=== PATIENT | female | born 1945 | race Caucasian/White ===

== ENCOUNTER 2016-08-08 13:27 | Emergency (ER) | payer BC ==
[~2016-08-08] VITALS: Ht 162.6 cm; Wt 78.7 kg
[~2016-08-08 13:27] MED LIST: ALBUAER2 INH; CHOL1000 PO; ESTA1TAB PO; LEVO100T PO; MULT-240 PO; PRLSR20 PO; SIMV20TA2 PO
[2016-08-08 13:29] VITALS: TEMP 36.3; Ht 162.6 cm; Wt 78.7 kg
[2016-08-08 13:35] VITALS: O2SAT 100
[2016-08-08] MEDS ORDERED: ALBUT/IPRATROP 3MG/0.5MG NEB 3 ML VIAL INH STA (13:36)
[2016-08-08] MEDS ORDERED: ALBUT/IPRATROP 3MG/0.5MG NEB 3 ML VIAL ONE (13:38)
--- NOTE | 2016-08-08 13:44 | EMERGENCY ROOM VISIT NOTE ---
History Report prepared by Nelia: Xiomara Robles First contact with patient: 13:38 Chief Complaint: SHORTNESS OF BREATH Stated Complaint: ASTHMA Nursing Triage Summary: History of asthma. Has inhaler and nebulizer but nebulizer was broken in customs. Traveled from [place] in March. Pt also states she has alkot fo phlegm. Has a dry cough. History of Present Illness The patient is a 71 year old female who presents to the Emergency Room with complaints of persistent shortness of breath that started last night. She has a history of asthma and reports her current symptoms feel like her usual asthma exacerbation. She states the last time she was on steroids for her asthma was about 6 or 7 years ago. She has an inhaler and nebulizer but reports her nebulizer was broken in customs, when she came to the [place] from [place] in March 2016. She also complains of a dry cough. Source of History: patient Onset: last night Position: chest Timing: other (persistent) Modifying Factors (Relieving): other (inhaler) Associated Symptoms: + cough Review of Systems See HPI for pertinent positives & negatives. A total of 10 systems reviewed and were otherwise negative. Past Medical & Surgical Medical Problems: (1) Asthma Social History Smoking Status: Never Smoker Alcohol Use: none Drug Use: none Marital Status: Housing Status: lives with family Occupation Status: retired Current/Historical Medications Scheduled Cholecalciferol (Vitamin D3), 1 TAB PO QAM Estazolam (Prosom), 2 MG PO HS Fluticasone Prop/Salmeterol (Advair Diskus 100/50 60 Dose), 1 PUFFS INH BID Levothyroxine Sodium (Synthroid), 100 MCG PO QAM Multiple Vitamins W/ Minerals (Womens One Daily), 1 TAB PO QAM Omeprazole (Prilosec), 20 MG PO QAM Prednisone (Prednisone Tab), 0 PO DAILY Simvastatin (Zocor), 20 MG PO HS Scheduled PRN Albuterol (Ventolin), 2 PUFFS INH QID PRN for Wheezing Allergies Coded Allergies: Oxycodone (Unverified Allergy, Mild, NAUSEA/VOMITING, 11/18/15) Latex1 -Allergic Contact Dermititis (Verified Allergy, Unknown, RASH/ BLISTERS, 11/18/15) Sulfa Antibiotics (Verified Allergy, Unknown, RASH? UNKNOWN - LONG TIME AGO, 11/18/15) Uncoded Allergies: SULFA (Allergy, Unknown, 09/20/02) Physical Exam Vital Signs Date Time Temp Pulse Resp B/P Pulse Ox O2 Delivery O2 Flow Rate FiO2 08/08/16 14:54 84 20 146/64 100 08/08/16 14:09 88 16 96 Room Air 08/08/16 13:51 91 08/08/16 13:41 100 Room Air 08/08/16 13:35 100 Room Air 08/08/16 13:35 100 Room Air 08/08/16 13:29 36.3 103 22 184/103 98 Room Air Physical Exam GENERAL: Patient is a healthy-appearing well-nourished HEAD: Normocephalic atraumatic EYES: Ocular movements intact pupils equal and react to light OROPHARYNX mucous membranes are moist no exudates present no erythema or edema present NECK: Supple no nuchal rigidity CHEST: Good equal expansion LUNGS: Slight wheezes present in the lung bases. CARDIAC: Normal S1 and S2 ABDOMEN: Soft nontender no guarding BACK: No CVA tenderness EXTREMITIES: No pain upon palpation normal muscle strength in all groups no clubbing cyanosis or edema NEURO: Patient is following commands is answering questions appropriately. Alert and oriented x3 Cranial Nerves 2-12 grossly intact Medical Decision & Procedures ER Provider Diagnostic Interpretation: This X-Ray was reviewed and interpreted by myself and the radiologist. SINGLE VIEW CHEST IMPRESSION: 1. Cardiomegaly. 2. There is diffuse interstitial thickening. This could resent reactive airway disease or possibly a component of mild congestive failure. Clinical correlation will be required. 3. No lobar consolidation or pleural effusion is identified Electronically signed by: Andrew Puga M.D. 08/08/2016 2:25 PM Medications Administered Medications (Trade) Dose Ordered Sig/Jamari Route Start Time Stop Time Status Last Admin Dose Admin Albuterol/ Ipratropium (Duoneb) 3 ml NOW STAT INH 08/08/16 13:36 08/08/16 13:38 DC 08/08/16 13:40 3 ML Albuterol/ Ipratropium (Duoneb) 12 ml ONE ONCE INH 08/08/16 13:45 08/08/16 13:46 DC 08/08/16 14:09 12 ML Prednisone (PredniSONE TAB) 60 mg NOW STAT PO 08/08/16 13:43 08/08/16 13:44 DC 08/08/16 14:03 60 MG Albuterol (Ventolin Hfa Inhaler) 2 puffs NOW ONCE INH 08/08/16 14:45 08/08/16 14:46 DC 08/08/16 14:52 2 PUFFS ED Course 1340: Past medical records reviewed. The patient was evaluated in room C10. A complete history and physical examination was performed. 1336: DuoNeb 3 ml INH. 1343: Prednisone 60 mg PO. 1345: DuoNeb 12 ml INH. 1425: I reevaluated the patient. She is feeling better. I discussed her results and discharge instructions and she verbalized complete understanding and agreement. 1445: Albuterol 2 puffs INH. Medical Decision Prior records/ancillary studies reviewed. Triage Nursing notes reviewed. The patient's history was concerning for respiratory difficulties. Differential diagnosis: Etiologies such as infections, reactive airway disease, pneumonia, pneumothorax , COPD, CHF, cardiac ischemia, pulmonary embolism, musculoskeletal, gastrointestinal, as well as others were entertained. This is a 71-year-old female who presents emergency department complaining of asthma exacerbation. I recommended that the patient receive blood work as well as an IV line however the patient is adamantly refusing this. She was given prednisone in the emergency department and an hour-long breathing treatment. Repeat examination revealed improvement patient's symptoms. The patient is requesting to be discharged home and asking for her inhalers to be refilled. I believe this is reasonable and I will also place patient on a prednisone taper. The patient also refused flu swab in the emergency department. Patient was in agreement with the treatment plan. Impression Primary Impression: Asthma attack Scribe Attestation The scribe's documentation has been prepared under my direction and personally reviewed by me in its entirety. I confirm that the note above accurately reflects all work, treatment, procedures, and medical decision making performed by me. Departure Information Dispostion Home / Self-Care Prescriptions Fluticasone Prop/Salmeterol (Advair Diskus 100/50 60 Dose) 1 Ea Aerp 1 PUFFS INH BID for 30 Days, #1 INHALER 3 Refills Prov: Kal Carreno MD 08/08/16 Prednisone (Prednisone Tab) 20 Mg Tab 0 PO DAILY, #7 TAB 2 TABS DAILY FOR 2 DAYS, THEN 1 TAB DAILY FOR 2 DAYS, THEN 1/2 TAB DAILY FOR 2 DAYS. Prov: Kal Carreno MD 08/08/16 Referrals Heavenly Wright DO (PCP) Patient Instructions A Signature Page, Asthma - [facility], My [facility] Additional Instructions Use albuterol inhaler twice every 6 hours You have been examined and treated today on an emergency basis only. This is not a substitute for, or an effort to provide, complete comprehensive medical care. It is impossible to recognize and treat all injuries or illnesses in a single emergency department visit. It is therefore important that you follow up closely with Dr Wright. Call as soon as possible for an appointment. Thank you for your time and consideration. I look forward to speaking with you again soon. Please don't hesitate to call us if you have any questions.
[2016-08-08] MEDS ORDERED: ALBUT/IPRATROP 3MG/0.5MG NEB 3 ML VIAL INH ONE (13:45)
[2016-08-08 14:09] VITALS: PULSE 88; O2SAT 96
--- NOTE | 2016-08-08 14:26 | DIAGNOSTIC IMAGING REPORT ---
SINGLE VIEW CHEST CLINICAL HISTORY: Asthma attack. FINDINGS: An AP, portable, upright chest radiograph is compared to study dated 09/14/2007. The examination is degraded by portable technique and patient rotation. The heart is enlarged. There is diffuse interstitial thickening. No airspace consolidation or pleural effusion is identified. No pneumothorax is seen. The skeletal structures are osteopenic. The bony thorax is grossly intact. Surgical clips are noted in the right axilla. IMPRESSION: 1. Cardiomegaly. 2. There is diffuse interstitial thickening. This could resent reactive airway disease or possibly a component of mild congestive failure. Clinical correlation will be required. 3. No lobar consolidation or pleural effusion is identified Electronically signed by: Andrew Puga M.D. 08/08/2016 2:25 PM
[2016-08-08] MEDS ORDERED: PRED20TA2 PO (14:35)
[2016-08-08] MEDS ORDERED: ADVIN10/60 INH (14:35)
[2016-08-08] MEDS ORDERED: ALBUTEROL HFA 8 GM INHALER INH ONE (14:45)
[2016-08-08 14:54] VITALS: BP 146/64; PULSE 84; O2SAT 100
== END 2016-08-08 15:10 | disposition home or self-care (01) ==
LOC: C.EDB 13:28 → C.EDC 15:10
DX: J45.901 Unspecified asthma with (acute) exacerbation (principal); Z88.5 Allergy status to narcotic agent; Z91.040 Latex allergy status; Z88.2 Allergy status to sulfonamides; I51.7 Cardiomegaly

== ENCOUNTER 2016-08-12 16:21 | Emergency (ER) | payer BC ==
[~2016-08-12] VITALS: Ht 165.1 cm; Wt 78.5 kg
[~2016-08-12 16:21] MED LIST changes: +ADVIN10/60 INH; +PRED20TA2 PO
[2016-08-12 16:28] VITALS: TEMP 36.7; Ht 165.1 cm; Wt 78.5 kg
[2016-08-12] MEDS ORDERED: ALBUT/IPRATROP 3MG/0.5MG NEB 3 ML VIAL INH STA ×2 (16:44→17:44)
--- NOTE | 2016-08-12 17:33 | DIAGNOSTIC IMAGING REPORT ---
CHEST 2 VIEWS ROUTINE CLINICAL HISTORY: There is a breath, cough. COMPARISON STUDY: 08/08/2016 FINDINGS: The heart is mildly enlarged. There is no focal pulmonary consolidation. There is resolving interstitial edema. There are no pleural effusions. Surgical clips project over the right axillary region and both breasts.[ IMPRESSION: Resolving bilateral interstitial opacities. No evidence of lobar consolidation. Electronically signed by: Kris Davis M.D. 08/12/2016 5:31 PM Dictated Date/Time: 08/12/2016 5:30 PM
[2016-08-12] MEDS ORDERED: ACETAMINOPHEN 500 MG TAB PO STA (17:45)
[2016-08-12 18:12] VITALS: BP 138/78; PULSE 79; O2SAT 96
--- NOTE | 2016-08-12 18:34 | EMERGENCY ROOM VISIT NOTE ---
History First contact with patient: 16:32 Chief Complaint: RESPIRATORY PROBLEMS Stated Complaint: ASTHMA Nursing Triage Summary: Pt presents with c/o asthma attack. Pt states seen here two days ago and sx are worse. Pt asking for a neb in triage. History of Present Illness The patient is a 71 year old female who presents to the Emergency Room with complaints of chest tightness and shortness of breath due to an asthma attack. The patient was seen here several days ago for the same symptoms. She states she was given a nebulized treatment while in the emergency room and it made her feel much better. The patient states that she felt better for approximately 1 day and then her symptoms started progressing again. The patient is using her discus inhaler as well as her Ventolin inhaler. She is taking her prednisone as prescribed. The patient states that her family physician, Dr. Williamson called her and referred her to a independent freight agent in [place] in 20 days. The patient states that she does not drive and really only once a nebulizer for at home. The patient states that she had a nebulizer in the past but he was broken when she was traveling and had to put it in her suitcase. She states that this was several years ago and has not needed a nebulizer till just recently. The patient denies any other symptoms of head congestion, ear pain, sore throat, fever or chest pain. Review of Systems 10 system review was performed and was negative unless stated otherwise history of present illness. Past Medical/Surgical History Medical Problems: (1) Asthma Social History Smoking Status: Never Smoker Alcohol Use: none Drug Use: none Marital Status: Housing Status: lives with family Occupation Status: retired Current/Historical Medications Scheduled Cholecalciferol (Vitamin D3), 1 TAB PO QAM Estazolam (Prosom), 2 MG PO HS Fluticasone Prop/Salmeterol (Advair Diskus 100/50 60 Dose), 1 PUFFS INH BID Levothyroxine Sodium (Synthroid), 100 MCG PO QAM Multiple Vitamins W/ Minerals (Womens One Daily), 1 TAB PO QAM Omeprazole (Prilosec), 20 MG PO QAM Prednisone (Prednisone Tab), 0 PO DAILY Simvastatin (Zocor), 20 MG PO HS Scheduled PRN Albuterol (Ventolin), 2 PUFFS INH QID PRN for Wheezing Allergies Coded Allergies: Oxycodone (Unverified Allergy, Mild, NAUSEA/VOMITING, 08/12/16) Latex1 -Allergic Contact Dermititis (Verified Allergy, Unknown, RASH/ BLISTERS, 08/12/16) Sulfa Antibiotics (Verified Allergy, Unknown, RASH? UNKNOWN - LONG TIME AGO, 08/12/16) Uncoded Allergies: SULFA (Allergy, Unknown, 09/20/02) Physical Exam Vital Signs Date Time Temp Pulse Resp B/P Pulse Ox O2 Delivery O2 Flow Rate FiO2 08/12/16 18:12 79 18 138/78 96 Room Air 08/12/16 16:28 36.7 108 22 158/84 96 Room Air Physical Exam PHYSICAL EXAM: Vital Signs were reviewed: Temperature 36.7, blood pressure 158/ 84, pulse 108, respiratory rate 22 Reviewed Nurse's notes and agree. Oxygen saturation is 96 % on room air which is normal . GENERAL: 71-year-old white female appears in no acute distress. MENTAL STATUS: Alert, oriented, coherent. EARS: Canals clear. TMs good light reflex, no erythema or fluid level noted. NOSE: Nasal mucosa without erythema or engorgement. PHARYNX: No erythema, no edema noted. No exudate noted. Uvula is absent. Airway is adequate. NECK: Supple, non-tender. No lymphadenopathy noted. LUNGS: Clear to auscultation with expiratory wheezing noted bilaterally.. CARDIAC: Regular rate and rhythm without murmur. SKIN: No rashes noted. Medical Decision & Procedures ER Provider Diagnostic Interpretation: CHEST 2 VIEWS ROUTINE CLINICAL HISTORY: There is a breath, cough. COMPARISON STUDY: 08/08/2016 FINDINGS: The heart is mildly enlarged. There is no focal pulmonary consolidation. There is resolving interstitial edema. There are no pleural effusions. Surgical clips project over the right axillary region and both breasts.[ IMPRESSION: Resolving bilateral interstitial opacities. No evidence of lobar consolidation. Electronically signed by: Kris Davis M.D. 08/12/2016 5:31 PM Medications Administered Medications (Trade) Dose Ordered Sig/Jamari Route Start Time Stop Time Status Last Admin Dose Admin Albuterol/ Ipratropium (Duoneb) 3 ml NOW STAT INH 08/12/16 16:44 08/12/16 16:46 DC 08/12/16 16:56 3 ML Albuterol/ Ipratropium (Duoneb) 3 ml NOW STAT INH 08/12/16 17:44 08/12/16 17:46 DC 08/12/16 18:10 3 ML Acetaminophen (Tylenol Tab) 1,000 mg NOW STAT PO 08/12/16 17:45 08/12/16 17:46 DC 08/12/16 18:10 1,000 MG ED Course The patient was evaluated. The patient's EMR was reviewed. Patient had a portable chest x-ray which was of poor quality at her last ER visit. I discussed with the patient about obtaining a 2 view chest which she is non- portable she was in agreement. I also recommended that we get laboratory testing on her but she refuses cut she did not want any needles. She states she had labs drawn at her doctor's office 1 week prior to her being in the emergency room a few days ago and they were all normal. The patient just Requesting that she gets a nebulized treatment. The patient was given a DuoNeb x2. A chest x-ray was ordered and interpreted by the radiologist as above without any acute findings. I informed the patient of the x-ray findings. The patient states that she was feeling better. I also spoke with the case sealer to see if we could get her an appointment with Dr. Williamson tomorrow that she could break the patient for a home nebulizer and medications. The case sealer was able to get the patient an appointment tomorrow at 1:[address] Williamson. The patient was informed and happy with treatment plan. The patient was discharged home in stable condition. Medical Decision Differential diagnosis include influenza, pneumonia, asthma exacerbation, anxiety attack Due to the patient's history of asthma and recent ER visit for asthma exacerbation this was my main concern and likely diagnosis Impression Primary Impression: Asthma exacerbation Departure Information Dispostion Home / Self-Care Condition GOOD Referrals Heavenly WrightDO (PCP) Forms HOME CARE DOCUMENTATION FORM, IMPORTANT VISIT INFORMATION, WORK / SCHOOL INSTRUCTIONS Patient Instructions A Signature Page, Asthma, [facility] [place] Additional Instructions Continue all current medications as prescribed. Keep scheduled appointment with Dr. Williamson tomorrow for further management of your asthma.
== END 2016-08-12 18:40 | disposition home or self-care (01) ==
LOC: C.EDB 16:22
DX: J45.901 Unspecified asthma with (acute) exacerbation (principal); Z79.899 Other long term (current) drug therapy; Z88.2 Allergy status to sulfonamides; Z88.8 Allergy status to other drugs, medicaments and biological substances; Z91.040 Latex allergy status

== ENCOUNTER → 2017-07-27 | Outpatient (CLI) | payer BC ==
[~2017-07-27] MED LIST changes: +GADAVIST IV PRN; -PRED20TA2 PO
--- NOTE | 2017-07-27 15:41 | DIAGNOSTIC IMAGING REPORT ---
RIGHT WRIST MRI CLINICAL HISTORY: R WRIST PAIN TECHNIQUE: Multiplanar multisequence MRI of the right wrist was performed both before and after the intravenous ministration of contrast. COMPARISON STUDY: None. FINDINGS: No fractures identified within the wrist. Partial tear of the extensor carpi ulnaris tendon. Severe osteoarthritis at the first carpometacarpal joint with large marginal osteophytes, full-thickness cartilage loss, [id number] articulation, subchondral edema, subchondral cystic change. There is also 6 mm of radial subluxation of the first metacarpal in relation to the trapezium bone. This is also likely due to the long-standing degenerative change. This accounts for the patient's palpable abnormality. Small wrist effusion. Multiple tears at the TFCC including the ulnar attachments of the triangular fibrocartilage, meniscus homologue, and the ulnar collateral ligament. Scattered areas of cystic change within the carpal bones is likely due to the degenerative change. There is a partial tear of the scapholunate ligament. However, the interval is intact. There is moderate cartilage space narrowing at the radiocarpal joint as well as fluid and cartilage thinning at the STT joint. This is also consistent with areas of degenerative change. There is a 1.8 x 1.0 cm well-circumscribed oval-shaped fat-containing lesion along the volar aspect of the wrist. This is deep to the median nerve and results in volar displacement of the median nerve. IMPRESSION: 1. Severe osteoarthritis at the first carpometacarpal joint as described above which accounts for the patient's palpable abnormality. This includes 6 mm of radial subluxation of the first metacarpal in relation to the trapezium bone. 2. Multiple tears of the TFCC as described above as well as a partial tear of the adjacent extensor carpi ulnaris. 3. Partial scapholunate ligament tear. 4. Small joint effusion. 5. A 1.8 x 1.0 cm lipoma along the volar aspect of the wrist. This is deep to the median nerve and results in volar displacement of the median nerve. Electronically signed by: Pedro Pandey M.D. 07/27/2017 3:39 PM Dictated Date/Time: 07/27/2017 3:25 PM
== END | disposition home or self-care (01) ==
LOC: C.MRIBC 13:40
PROVIDERS: ATTEND Orthopaedic Surgery
DX: M25.531 Pain in right wrist (principal); M18.0 Bilateral primary osteoarthritis of first carpometacarpal joints; R22.31 Localized swelling, mass and lump, right upper limb

== ENCOUNTER 2023-08-03 13:05 | Inpatient (IN) ==
[2023-08-03] MEDS ORDERED: ALBUT/IPRATROP 3MG/0.5MG NEB 3 ML VIAL NEB STA ×2 (13:32→16:44)
[2023-08-03] MEDS ORDERED: SODIUM CHLORIDE 0.9% 500 ML IV ONE (13:32)
--- NOTE | 2023-08-03 13:32 | ED Triage Note ---
Date of Service August 03, 2023 Provider in Triage Author: Indu Gamboa History of Present Illness This patient was briefly evaluated while in triage. An abbreviated physical exam was performed. This patient is a 78-year-old Female who presents to the ED for evaluation of illness. She has had runny nose, nasal congestion, and cough for the past 5 days. No fevers. Has been having a lot of SOB. History of lung cancer surgery about 3 years ago so she is worried. Has not been able to sleep because of the symptoms. Home COVID test was negative. Physical Exam GENERAL: Non-toxic and in no acute distress. HEENT: Pupils equal. No obvious scleral icterus. HEART: Regular rate and rhythm. LUNGS: Clear to auscultation with wheezes throughout. No obvious rales or rhonchi. Mild accessory muscle use without retractions. ABDOMEN: Soft, non-tender to palpation. NEURO: Alert and oriented. No obvious neurological deficits on quick neuro exam. MUSCULOSKELETAL: No calf tenderness, swelling, or erythema. Initial orders for labs and / or imaging were placed and patient was placed in the waiting area until a bed is available. Please see further documentation for the full ED course. MDM / Impression Impression Impression: SOB (shortness of breath), Influenza A, Pneumonia, Leukocytosis, Hyponatremia Impression: Pneumonia Qualifiers: Pneumonia type: due to unspecified organism Laterality: right Lung location: unspecified part of lung Qualified Code(s): J18.9 - Pneumonia, unspecified organism Leukocytosis Qualifiers: Leukocytosis type: unspecified Qualified Code(s): D72.829 - Elevated white blood cell count, unspecified
[2023-08-03 14:38] LABS: Basophils # (auto) 0.04 K/uL (0.00-0.20); Basophils % (auto) 0.2 %; Eosinophils # (auto) 0.03 K/uL (0.00-0.50); Eosinophils % (auto) 0.2 %; Hematocrit (blood only) 41.5 % (37.0-47.0); Hemoglobin 14.1 g/dl (12.0-16.0); Immature Granulocytes # (auto) 0.16 K/uL (0.01-0.20); Immature Granulocytes % (auto) 0.9 %; Lymphocytes # (auto) 1.88 K/uL (1.20-3.40); Lymphocytes % (auto) 10.3 %; Mean Corpuscular Volume 94.1 fL (80.0-100.0); Mean Platelet Volume 10.5 fL (9.4-12.4); Monocytes # (auto) 0.91 K/uL (0.11-0.59); Neutrophils # (auto) 15.24 K/uL (1.40-6.50); Neutrophils % (auto) 83.4 %; Platelet Count 118 K/uL (130-400); RDW Coefficient of Variation 12.3 % (11.5-14.5); RDW Standard Deviation 42.7 fL (36.4-46.3); Red Blood Count 4.41 M/uL (4.20-5.40); White Blood Count 18.26 K/ul (4.8-10.8)
[2023-08-03 14:50] LABS: Albumin Globulin Ratio 1.2 (0.9-2); BUN Creatinine Ratio 15.2 (10-20); Bilirubin,Total 0.9 mg/dl (0.2-1.0); Creatinine Clr Calc Pharmacy 78.5 ml/min; Est GFR (African American) 99.5 ml/min; Est GFR (Non-African American) 85.8 ml/min; Globulin 3.3 gm/dl (2.5-4.0); Potassium 3.7 mmol/L (3.5-5.1); Total Protein 7.3 gm/dl (6.0-8.3)
[2023-08-03 14:55] LABS: Troponin I High Sensitivity 14.3 pg/ml (0-14)
[2023-08-03 15:02] LABS: Partial Thromboplastin Ratio 1.2; Partial Thromboplastin Time 33 Seconds (21-31); Prothrombin Time 11.4 Seconds (9.0-12.0)
--- NOTE | 2023-08-03 15:22 | Electrocardiogram Report ---
Test Reason : Blood Pressure : / mmHG Vent. Rate : 086 BPM Atrial Rate : 086 BPM P-R Int : 148 ms QRS Dur : 086 ms QT Int : 374 ms P-R-T Axes : 040 005 040 degrees QTc Int : 447 ms Normal sinus rhythm Normal ECG When compared with ECG of 22-MAY-2022 18:14, No significant change was found Confirmed by Dg Velazco ([id number]) on 08/03/2023 3:22:15 PM Referred By: Confirmed By:Diomedes Velazco
[2023-08-03] MEDS ORDERED: OPTIRAY 320 125ml IV ONE (15:27)
[2023-08-03 15:35] LABS: Adenovirus PCR Not Detected (NotDetected); Bordetella parapertussis PCR Not Detected (NotDetected); Bordetella pertussis PCR Not Detected (NotDetected); Chlamydia pneumoniae PCR Not Detected (NotDetected); Coronavirus 229E PCR Not Detected (NotDetected); Coronavirus CoV-2 (COVID19)PCR Not Detected (NotDetected); Coronavirus HKU1 PCR Not Detected (NotDetected); Coronavirus NL63 PCR Not Detected (NotDetected); Coronavirus OC43PCR Not Detected (NotDetected); Human Metapneumovirus PCR Not Detected (NotDetected); Influenza B PCR Not Detected (NotDetected); Mycoplasma pneumoniae PCR Not Detected (NotDetected); Parainfluenza Virus 1 PCR Not Detected (NotDetected); Parainfluenza Virus 2 PCR Not Detected (NotDetected); Parainfluenza Virus 3 PCR Not Detected (NotDetected); Parainfluenza Virus 4 PCR Not Detected (NotDetected); Respiratory Syncytial VirusPCR Not Detected (NotDetected); Rhinovirus/Enterovirus PCR Not Detected (NotDetected)
[2023-08-03 15:57] LABS: Influenza A (H3) PCR DETECTED (NotDetected)
--- NOTE | 2023-08-03 16:13 | CT Scan Report ---
CT ANGIOGRAPHY OF THE CHEST, PULMONARY EMBOLUS PROTOCOL CLINICAL HISTORY: Shortness of breath. COMPARISON STUDY: Chest CT May 22, 2022. TECHNIQUE: Following IV administration of 117 mL of Optiray, helical axial images of the chest were o btained utilizing the pulmonary embolus protocol. Maximal intensity projections and sagittal and cor onal reformats were viewed on an independent 3D workstation. IV contrast was administered without co mplication. Automated exposure control was utilized for the study. A dose lowering technique was ut ilized adhering to the principles of ALARA. CT DOSE: 845.32 mGy.cm FINDINGS: There are postoperative findings consistent with right lower lobectomy. No enlarged axilla ry, mediastinal or hilar lymph nodes are present. There are no pulmonary emboli. Mild cardiomegaly is noted. There is no pericardial effusion. A trace right pleural effusion is present. There is no pneu mothorax. Extensive airspace opacity within the posterior segment of the right upper lobe and the rig ht middle lobe is present. There is no cavitation. Lungs are suboptimally assessed due to respiratory motion. No central obstructing mass is present. There is hepatic steatosis. Gallbladder is surgicall y absent. IMPRESSION: 1. No pulmonary emboli identified. 2. Extensive airspace opacity within the right upper and right middle lobes status post right lower l obectomy. The findings favor pneumonia or aspiration pneumonitis. A follow-up chest CT in 2 months to ensure resolution is recommended. 3. Cardiomegaly. 4. Hepatic steatosis. ACT 112: Negative or not required by law. Electronically signed by: Martin Miller M.D. 08/03/2023 4:12 PM
[2023-08-03] MEDS ORDERED: CEFEPIME 2,000 MG/20 ML VIAL IV STA (16:36)
[2023-08-03] MEDS ORDERED: SODIUM CHLORIDE 0.9% 1,000 ML IV ONE (16:36)
--- NOTE | 2023-08-03 16:49 | Emergency Department Note ---
Impression & Plan SOB (shortness of breath), Influenza A, Pneumonia, Leukocytosis, Hyponatremia ED Provider Note NAME: MARCUS MARS AGE: 78 SEX: F : 1945 ARRIVES VIA: Walk-In INFORMANT: [Patient] ED PROVIDER(S): [Andrew Mackenzie MD] CHIEF COMPLAINT: Illness HISTORY OF PRESENT ILLNESS: The patient is a 78-year-old female who has been sick for 5 days. She had a cough, congestion, no appetite and fatigue. She states that her recently had influenza. The patient has a history of lung cancer with resection on the right lung. She denies nausea or vomiting. She does admit to some shortness of breath although, she states her breathing is not too bad. She has a nebulizer at home which she has been using. Because of how she was feeling, the patient presents for evaluation. PMHx/PSHx/Social Hx: See Below PHYSICAL EXAM: GENERAL: Patient is in no acute distress. HEENT: No acute trauma, normocephalic atraumatic, mucous membranes moist, no nasal congestion. NECK: No stridor, no adenopathy, no meningismus, trachea is midline. LUNGS: Wheezing bilaterally with some bilateral crackers, the crackles are much worse on the right. HEART: Without murmurs gallops or rubs, regular rate and rhythm. ABDOMEN: Soft, nontender, no peritonitis. EXTREMITIES: No cyanosis, full range of motion of all the joints without pain or difficulty. NEUROLOGIC: Oriented x 3, no acute motor or sensory deficits, no focal weakness. SKIN: No jaundice, no diaphoresis. DIFFERENTIAL DIAGNOSIS: Pneumonia or bronchitis, viral illness, anemia, electrolyte imbalance, PE, bacteremia or sepsis, among others. EMERGENCY DEPARTMENT PROCEDURES: MEDICAL DECISION MAKING: There is a moderate leukocytosis at 18,000, this would be consistent with infection. There is a normal hemoglobin. Platelet count is somewhat low at 118. No concerning coagulopathy. Sodium is slightly low at 132, not in need of emergent correction. There was no renal failure. Lactic acid level was not elevated making severe sepsis less likely. No concerning liver enzyme elevation. Procalcitonin level was elevated consistent with bacterial infection. ECG showed a sinus rhythm, no obvious ischemia. Cardiac enzyme testing x 1 was slightly elevated. This troponin elevation could be secondary to cardiac injury or potentially just mismatch from her dyspnea. Respiratory bio fire was positive for influenza A. Chest CT does not show PE, a right-sided pneumonia was seen. On exam, the patient did have crackles along the right lung more so than the left. There was wheezing present. Patient received IV saline, 1 L. She received IV cefepime as antibiotic coverage. She was given a DuoNeb. The patient has influenza A and pneumonia. She has ongoing chronic lung disease. She presents with some dyspnea and flulike symptoms. Given her history, given her age, I do think hospitalization would be warranted. I spoke with the patient, I discussed the patient's findings with case management, the on-call hospitalist was consulted. Prior/Outside records/notes reviewed: GI note from 11/03/2022 discussing her chronic diarrhea and the plan moving forward. ECG per my interpretation: Indication was shortness of breath. The ECG shows a normal sinus rhythm with a rate of 86. There is no ST elevation, no PVCs. The QTc is 447. Continuous Cardiac Monitoring per my interpretation: An order was placed for continuous cardiac monitoring. The monitor shows a rate of 95 with normal sinus rhythm. Imaging/x-ray results per my interpretation: Chronic Medical/Social conditions affecting care: Chronic lung disease. Advanced age. Care/Management discussed with: Case management, the on-call hospitalist. Level of care consideration(s): After review of the information above and other included data: --I believe the patient requires escalation of care to admission DISPOSITION: Admission Past Med/Surg History Medical History Chest pain thought to be GI related per pt, reason egd but also referred to dr. ibanez (new pt appt 04/23 per pt) Fear of needles Osteoarthritis Bloating Intermittent diarrhea Diverticular disease GERD (gastroesophageal reflux disease) Hypothyroidism History of lung cancer dx 2019; sx White coat syndrome without diagnosis of hypertension Prolonged QT interval has not been to a [employer] network engineer but reports Dr. Jimenez referred her to Dr. Ibanez given current symptoms, appt is 04/23. prolonged QT interval is not a new finding per pt History of cystitis Asthma uses PRN inh 1xwk on avg Surgical History History of hemorrhoidectomy History of x 2 History of tonsillectomy History of right shoulder replacement History of bilateral knee replacement History of esophagogastroduodenoscopy (EGD) History of colonoscopy S/P lobectomy of lung RLL History of surgery on wrist History of oophorectomy History of hysterectomy History of cholecystectomy History of uvulectomy per pt, uvulectomy was a medical mistake during tonsillectomy as a teen Family History Other No family history of adverse response to anesthesia Social History Smoking Status: Never smoker Second Hand Exposure: No; Do You Dip or Chew Tobacco: No; Hx Alcohol Use: No Hx Substance Use: No Preferred Language: Martiniquais Communication Ability: Effective Rn Bone Marrow Transplant Required: No Beliefs That Will Affect Care: None Current Living Situation: Spouse Feels Safe at Home: Yes Assistive Devices: Glasses Allergies Allergies Allergy/AdvReac Type Severity Reaction Status Date / Time gabapentin Allergy Severe TROUBLE Verified 08/03/23 17:04 BREATHING, FACE SWELLED, VOMITING latex Allergy Severe Difficulty Verified 08/03/23 17:03 Breathing oxycodone [From Percocet] Allergy Intermediate Hives Verified 08/03/23 17:03 Sulfa (Sulfonamide Allergy Intermediate Rash Verified 08/03/23 17:03 Antibiotics) Quinolones AdvReac Severe Tachycardia Verified 08/03/23 17:03 hydrocodone [From Vicodin] AdvReac Intermediate nausea/vomi Verified 08/03/23 17:03 ting chocolate Allergy Intermediate Rash Uncoded 08/03/23 17:03 Home Meds Home Medications Medication Instructions Recorded Confirmed albuterol sulfate 2.5 mg/3 mL 2.5 mg inhalation Q4 PRN Wheezing 05/29/19 08/03/23 (0.083 %) solution for nebulization albuterol sulfate 90 mcg/actuation 2 puff inhalation QID PRN Wheezing 05/29/19 08/03/23 aerosol inhaler (ProAir HFA) cholecalciferol (vitamin D3) 125 5,000 unit PO QDL 05/29/19 08/03/23 mcg (5,000 unit) tablet (Vitamin D3) estazolam 2 mg tablet 2 mg PO HS 05/29/19 08/03/23 levothyroxine 88 mcg tablet 88 mcg PO QAM 05/29/19 08/03/23 omeprazole 20 mg capsule,delayed 20 mg PO QAM 05/29/19 08/03/23 release Results & Data (ED) Vital Signs Vital Signs - 24 hr 08/03/23 13:28 08/03/23 16:54 08/03/23 18:12 Temperature 36.3 C L Temperature Source Temporal Artery Scan Pulse Rate 95 H Pulse Rate [Right Finger] 88 80 Pulse Rhythm [Right Finger] Regular Respiratory Rate 22 21 22 Respiratory Effort / Characteristics Non-Labored Spontaneous Respiratory Depth Normal Normal Blood Pressure 115/67 Blood Pressure [Right Arm] 136/100 107/69 Blood Pressure Mean 83 Blood Pressure Mean [Right Arm] 112 81 Pulse Oximetry 93 90 94 Oxygen Delivery Method Room Air Room Air Sepsis Recent Fever Within 48 Hours No Sepsis New/Unexplained Change in Mental Status N/A Sepsis Action Taken by Nursing No Action Required Home Medications Current Medication List: was personally reviewed by me Laboratory Data Attestation: I reviewed the patient's lab results. 08/03/23 14:10 08/03/23 14:10 Lab Results 08/03/23 08/03/23 Range/Units 14:10 17:50 WBC 18.26 H (4.8-10.8) K/ul RBC 4.41 (4.20-5.40) M/uL Hgb 14.1 (12.0-16.0) g/dl Hct 41.5 (37.0-47.0) % MCV 94.1 (80.0-100.0) fL MCH 32.0 (25.0-34.0) pg MCHC 34.0 (32.0-36.0) g/dL RDW Std Deviation 42.7 (36.4-46.3) fL RDW Coeff of Paul 12.3 (11.5-14.5) % Plt Count 118 L (130-400) K/uL MPV 10.5 (9.4-12.4) fL Immature Gran % (Auto) 0.9 % Neut % (Auto) 83.4 % Lymph % (Auto) 10.3 % Weakley % (Auto) 5.0 % Eos % (Auto) 0.2 % Baso % (Auto) 0.2 % Neut # (Auto) 15.24 H (1.40-6.50) K/uL Lymph # (Auto) 1.88 (1.20-3.40) K/uL Weakley # (Auto) 0.91 H (0.11-0.59) K/uL Eos # (Auto) 0.03 (0.00-0.50) K/uL Baso # (Auto) 0.04 (0.00-0.20) K/uL Immature Gran # (Auto) 0.16 (0.01-0.20) K/uL PT 11.4 (9.0-12.0) Seconds INR 1.0 (0.9-1.1) APTT 33 H (21-31) Seconds PTT Ratio 1.2 Sodium 132 L (136-145) mmol/L Potassium 3.7 (3.5-5.1) mmol/L Chloride 98 (98-107) mmol/L Carbon Dioxide 27 (21-32) mmol/L Anion Gap 7 (3-11) BUN 10 (6-23) mg/dl Creatinine 0.66 (0.6-1.2) mg/dl Est Cr Clr Drug Dosing 78.5 ml/min Est GFR ( Amer) 99.5 ml/min Est GFR (Non-Af Amer) 85.8 ml/min BUN/Creatinine Ratio 15.2 (10-20) Glucose 114 H (70-99(Fasting)) mg/dl Lactate 1.0 (0.4-2.0) mmol/L Calcium 9.0 (8.6-10.3) mg/dl Total Bilirubin 0.9 (0.2-1.0) mg/dl AST 31 (13-39) U/L ALT 27 (7-52) U/L Alkaline Phosphatase 71 (34-104) U/L Troponin I High Sens 14.3 H (0-14) pg/ml Total Protein 7.3 (6.0-8.3) gm/dl Albumin 4.0 (3.4-5.0) gm/dl Globulin 3.3 (2.5-4.0) gm/dl Albumin/Globulin Ratio 1.2 (0.9-2) Adenovirus (PCR) Not Detected (NotDetected) B. pertussis DNA (PCR) Not Detected (NotDetected) B.parapertussis DNA PCR Not Detected (NotDetected) C. pneumoniae DNA (PCR) Not Detected (NotDetected) Coronavirus OC43 (PCR) Not Detected (NotDetected) Coronavirus HKU1 (PCR) Not Detected (NotDetected) Coronavirus 229E (PCR) Not Detected (NotDetected) SARS-CoV-2 (PCR) Not Detected (NotDetected) Coronavirus NL63 (PCR) Not Detected (NotDetected) Human Metapneumovir PCR Not Detected (NotDetected) Influenza A (H3) PCR DETECTED A* (NotDetected) Influenza Type B (PCR) Not Detected (NotDetected) M. pneumoniae (PCR) Not Detected (NotDetected) Parainfluenza 1 (PCR) Not Detected (NotDetected) Parainfluenza 2 (PCR) Not Detected (NotDetected) Parainfluenza 3 (PCR) Not Detected (NotDetected) Parainfluenza 4 (PCR) Not Detected (NotDetected) RSV (PCR) Not Detected (NotDetected) Entero/Rhino (PCR) Not Detected (NotDetected) Administered Medications Discontinued Medications Albuterol (Albut/Ipratrop 3mg/0.5mg Neb 3 Ml Vial) 3 ml NEB NOW STA; Protocol Stop: 08/03/23 13:33 Last Admin: 08/03/23 16:58 Dose: Not Given Documented By: ASW Albuterol (Albut/Ipratrop 3mg/0.5mg Neb 3 Ml Vial) 3 ml NEB NOW STA; Protocol Stop: 08/03/23 16:45 Last Admin: 08/03/23 17:02 Dose: 3 ml Documented By: ASW Sodium Chloride (Nss) 500 mls @ 999 mls/hr IV .Q31M ONE Stop: 08/03/23 14:02 Last Admin: 08/03/23 16:57 Dose: Not Given Documented By: ASW Sodium Chloride (Nss) 1,000 mls @ 999 mls/hr IV .Q1H1M ONE Stop: 08/03/23 17:36 Last Admin: 08/03/23 17:03 Dose: 999 mls/hr Documented By: ASW Cefepime HCl (Maxipime) 2,000 mg in 20 mls @ 5 mls/min IV NOW STA; Protocol Stop: 08/03/23 16:39 Last Admin: 08/03/23 18:10 Dose: 5 mls/min Documented By: PHYLLIS Ioversol (Optiray 320 125ml) 117 ml IV ONCE ONE Stop: 08/03/23 15:28 Last Admin: 08/03/23 15:27 Dose: 117 ml Documented By: STEFFANIE Imaging Data Radiologist's Impression: Chest CTA 08/03/23 13:32 CT ANGIOGRAPHY OF THE CHEST, PULMONARY EMBOLUS PROTOCOL CLINICAL HISTORY: Shortness of breath. COMPARISON STUDY: Chest CT May 22, 2022. TECHNIQUE: Following IV administration of 117 mL of Optiray, helical axial images of the chest were obtained utilizing the pulmonary embolus protocol. Maximal intensity projections and sagittal and coronal reformats were viewed on an independent 3D workstation. IV contrast was administered without complication. Automated exposure control was utilized for the study. A dose lowering technique was utilized adhering to the principles of ALARA. CT DOSE: 845.32 mGy.cm FINDINGS: There are postoperative findings consistent with right lower lobectomy. No enlarged axillary, mediastinal or hilar lymph nodes are present. There are no pulmonary emboli. Mild cardiomegaly is noted. There is no pericardial effusion. A trace right pleural effusion is present. There is no pneumothorax. Extensive airspace opacity within the posterior segment of the right upper lobe and the right middle lobe is present. There is no cavitation. Lungs are suboptimally assessed due to respiratory motion. No central obstructing mass is present. There is hepatic steatosis. Gallbladder is surgically absent. IMPRESSION: 1. No pulmonary emboli identified. 2. Extensive airspace opacity within the right upper and right middle lobes status post right lower lobectomy. The findings favor pneumonia or aspiration pneumonitis. A follow-up chest CT in 2 months to ensure resolution is recommended. 3. Cardiomegaly. 4. Hepatic steatosis. ACT 112: Negative or not required by law. Electronically signed by: Martin Miller M.D. 08/03/2023 4:12 PM Discharge Plan Visit Data Chief Complaint: Illness Stated Complaint: COUGHING, ILLNESS ED Provider: Andrew Mackenzie Discharge Problem: SOB (shortness of breath), Influenza A, Pneumonia, Leukocytosis, Hyponatremia Patient Disposition: Admitted As Inpatient Condition: Fair Forms Stand Alone Forms: [facility] Prescriptions Prescriptions: No Action albuterol sulfate 2.5 mg /3 mL (0.083 %) solution for nebulization 2.5 mg inhalation Q4 PRN (Reason: Wheezing) albuterol sulfate [ProAir HFA] 90 mcg/actuation HFA aerosol inhaler 2 puff inhalation QID PRN (Reason: Wheezing) estazolam 2 mg tablet 2 mg PO HS levothyroxine 88 mcg Tablet 88 mcg PO QAM omeprazole 20 mg capsule,delayed release(DR/EC) 20 mg PO QAM cholecalciferol (vitamin D3) [Vitamin D3] 5,000 unit Tablet 5,000 unit PO QDL Referrals Referrals: Heavenly Wright DO [Primary Care Provider] - Discharge Problem: Pneumonia Qualifiers: Pneumonia type: due to unspecified organism Laterality: right Lung location: u nspecified part of lung Qualified Code(s): J18.9 - Pneumonia, unspecified organism Leukocytosis Qualifiers: Leukocytosis type: unspecified Qualified Code(s): D72.829 - Elevated white blood cell count, unspecified
--- NOTE | 2023-08-03 17:35 | History & Physical Report ---
Date of Service August 03, 2023 Assessment & Plan (1) Influenza A: (2) Pneumonia: (3) Asthma exacerbation: Plan: Patient is 78-year-old female with PMH asthma, lung cancer s/p right lower lobectomy, HLD, hypothyroidism, anxiety, ADD, GERD, Raynaud's presented to ER with complaint of cough, SOB, wheezing x 5 days In ER patient afebrile, 93% on room air, other vital stable. WBC: 18 with left shift, lactate WNL, Pro-Alban: 57, + influenza A CTA chest: No pulmonary emboli identified. Extensive airspace opacity within the right upper and right middle lobes status post right lower lobectomy. The findings favor pneumonia or aspiration pneumonitis. A follow-up chest CT in 2 months to ensure resolution is recommended. Cardiomegaly. Blood cultures pending In ER given 1500 mL NSS, albuterol neb, cefepime Isolation precautions Will hold on Tamiflu given 5 days from symptom onset Cefepime, doxycycline Solu-Medrol 40 mg every 8 hours Supplemental oxygen as needed Incentive spirometry DuoNebs Mucinex, Tessalon Perles CBC, BMP in a.m. (4) Elevated troponin: Plan: Initial troponin 14.3 with repeat normalizing at 9.9 EKG sinus rhythm with no acute ST changes noted Likely demand from underlying pneumonia EKG in a.m. (5) Hyponatremia: Plan: Na: 132 Repeat BMP in a.m. (6) History of lung cancer: Plan: S/P right lower lobectomy (7) GERD (gastroesophageal reflux disease): Plan: Continue PPI (8) Hypothyroidism: Plan: Continue levothyroxine DVT Prophylaxis Lovenox SQ DNR/DNI as per discussion with pt Follows with Dr Wright for routine care Pt was seen and care coordinated with Dr Rahman. See addendum History of Present Illness Chief Complaint: Cough Primary Care Provider: Heavenly Wright, Patient is 78-year-old female with PMH asthma, lung cancer s/p right lower lobectomy, HLD, hypothyroidism, anxiety, ADD, GERD, Raynaud's presented to ER with complaint of cough x 5 days. History obtained from patient, patient's son and outpatient chart. States last week had influenza. Patient states 5 days ago started with LOGAN, malaise, myalgias, congestion, sore throat, nonproductive cough. has had chills. Has not been taking temperature at home. Patient states symptoms have continued and cough has worsened. Patient states coughing almost to the point of vomiting. States feels like needs to cough phlegm out however is unable to expel. Also reports chest tightness and wheezing the last several days. She has tried OTC Tylenol, Motrin, Delsym without much relief. Patient has been using albuterol nebulizer couple times a day. States the past 2 days has had 3-4 episodes of loose stool daily. has not had any diarrhea today. Decreased appetite and oral intake past few days. Denies diaphoresis, N/V, dizziness, syncope, vision changes, neck pain, palpitations, hemoptysis, choking, ear discharge, abdominal pain, paresthesias, extremity weakness, extremity edema, rashes, urinary symptoms. Allergies Allergy/AdvReac Type Severity Reaction Status Date / Time gabapentin Allergy Severe TROUBLE Verified 08/03/23 17:04 BREATHING, FACE SWELLED, VOMITING latex Allergy Severe Difficulty Verified 08/03/23 17:03 Breathing chocolate Allergy Intermediate Rash Verified 08/03/23 19:09 oxycodone [From Percocet] Allergy Intermediate Hives Verified 08/03/23 17:03 Sulfa (Sulfonamide Allergy Intermediate Rash Verified 08/03/23 17:03 Antibiotics) Quinolones AdvReac Severe Tachycardia Verified 08/03/23 17:03 hydrocodone [From Vicodin] AdvReac Intermediate nausea/vomi Verified 08/03/23 17:03 ting Home Medications Medication Instructions Recorded Confirmed Type albuterol sulfate 2.5 mg/3 mL 2.5 mg inhalation Q4 PRN Wheezing 05/29/19 08/03/23 History (0.083 %) solution for nebulization albuterol sulfate 90 mcg/actuation 2 puff inhalation QID PRN Wheezing 05/29/19 08/03/23 History aerosol inhaler (ProAir HFA) cholecalciferol (vitamin D3) 125 5,000 unit PO QDL 05/29/19 08/03/23 History mcg (5,000 unit) tablet (Vitamin D3) estazolam 2 mg tablet 2 mg PO HS 05/29/19 08/03/23 History levothyroxine 88 mcg tablet 88 mcg PO QAM 05/29/19 08/03/23 History omeprazole 20 mg capsule,delayed 20 mg PO QAM 05/29/19 08/03/23 History release peg 400-propylene glycol (PF) 0.4 1 drp ophthalmic (eye) BID PRN Dry 08/03/23 08/03/23 History %-0.3 % eye drops in a dropperette Eye(S) (Systane (PF)) Past Med/Surg History Medical History (Updated 08/03/23 @ 19:59 by Reina Mills PA-C) Chest pain thought to be GI related per pt, reason egd but also referred to dr. ibanez (new pt appt 04/23 per pt) Fear of needles Osteoarthritis Bloating Intermittent diarrhea Diverticular disease GERD (gastroesophageal reflux disease) Hypothyroidism History of lung cancer dx 2019; sx White coat syndrome without diagnosis of hypertension Prolonged QT interval has not been to a adapted physical education specialist but reports Dr. Jimenez referred her to Dr. Ibanez given current symptoms, appt is 04/23. prolonged QT interval is not a new finding per pt History of cystitis Asthma uses PRN inh 1xwk on avg Surgical History History of hemorrhoidectomy History of x 2 History of tonsillectomy History of right shoulder replacement History of bilateral knee replacement History of esophagogastroduodenoscopy (EGD) History of colonoscopy S/P lobectomy of lung RLL History of surgery on wrist History of oophorectomy History of hysterectomy History of cholecystectomy History of uvulectomy per pt, uvulectomy was a medical mistake during tonsillectomy as a teen Family History Other No family history of adverse response to anesthesia Social History Smoking Status: Never smoker Second Hand Exposure: No; Do You Dip or Chew Tobacco: No; Hx Alcohol Use: No Hx Substance Use: No Preferred Language: Colombian Communication Ability: Effective Assistant Oceanographer Required: No Beliefs That Will Affect Care: None Current Living Situation: Spouse Feels Safe at Home: Yes Safety Concerns: Feels Safe At This Time Assistive Devices: Glasses Review of Systems Review of Systems: All systems reviewed & are unremarkable except as noted in HPI & below Physical Exam Physical Exam: General: +ill appearing, + coughing, WDWN Head: normocephalic, atraumatic Eyes: PERRL, EOM's intact, conjunctiva non-injected, anicteric ENT: normal inspection external ears, bilateral TM's without erythema and are non-bulging, nose, mucous membranes moist Neck: supple, trachea midline Lungs: +cough, +wheezing throughout, +rales RUL, RML, sats 94% on RA, no respiratory distress CV: RRR, no murmur, no pretibial edema Abd: normal BS, soft, non-tender Ext: no cyanosis, no calf tenderness Neuro: A&O x 3, no focal deficits noted, normal affect Skin: warm, dry Results & Data Results & Data Vital Signs (Past 12 Hours) Vital Signs Temp Pulse Pulse Resp BP BP Pulse Ox 08/03/23 16:54 88 21 136/100 90 08/03/23 13:28 36.3 C L 95 H 22 115/67 93 O2 Del Method 08/03/23 16:54 Room Air 08/03/23 13:28 Laboratory Results Short CBC 08/03/23 Range/Units 14:10 WBC 18.26 H (4.8-10.8) K/ul Hgb 14.1 (12.0-16.0) g/dl Hct 41.5 (37.0-47.0) % Plt Count 118 L (130-400) K/uL BMP 08/03/23 14:10 Sodium 132 L Potassium 3.7 Chloride 98 Carbon Dioxide 27 BUN 10 Creatinine 0.66 Glucose 114 H Calcium 9.0 Liver Function 08/03/23 Range/Units 14:10 Total Bilirubin 0.9 (0.2-1.0) mg/dl AST 31 (13-39) U/L ALT 27 (7-52) U/L Alkaline Phosphatase 71 (34-104) U/L Albumin 4.0 (3.4-5.0) gm/dl Diagnostic Findings Chest CTA 08/03/23 13:32 CT ANGIOGRAPHY OF THE CHEST, PULMONARY EMBOLUS PROTOCOL CLINICAL HISTORY: Shortness of breath. COMPARISON STUDY: Chest CT May 22, 2022. TECHNIQUE: Following IV administration of 117 mL of Optiray, helical axial images of the chest were obtained utilizing the pulmonary embolus protocol. Maximal intensity projections and sagittal and coronal reformats were viewed on an independent 3D workstation. IV contrast was administered without complication. Automated exposure control was utilized for the study. A dose lowering technique was utilized adhering to the principles of ALARA. CT DOSE: 845.32 mGy.cm FINDINGS: There are postoperative findings consistent with right lower lobectomy. No enlarged axillary, mediastinal or hilar lymph nodes are present. There are no pulmonary emboli. Mild cardiomegaly is noted. There is no pericardial effusion. A trace right pleural effusion is present. There is no pneumothorax. Extensive airspace opacity within the posterior segment of the right upper lobe and the right middle lobe is present. There is no cavitation. Lungs are suboptimally assessed due to respiratory motion. No central obstructing mass is present. There is hepatic steatosis. Gallbladder is surgically absent. IMPRESSION: 1. No pulmonary emboli identified. 2. Extensive airspace opacity within the right upper and right middle lobes status post right lower lobectomy. The findings favor pneumonia or aspiration pneumonitis. A follow-up chest CT in 2 months to ensure resolution is recommended. 3. Cardiomegaly. 4. Hepatic steatosis. ACT 112: Negative or not required by law. Electronically signed by: Martin Miller M.D. 08/03/2023 4:12 PM ECG Additional Comments: Sinus rhythm, rate 86, no significant ST changes per my interpretation Supervising Physician Co-Signing Physician Notes Attending addendum: The patient was seen and examined in the emergency room She has been complaining of increasing shortness of breath cough for the last 5 days Has had flu at home with family members Complains cough and wheezing and shortness of breath Denies any fever and chills On examination Moderate shortness of breath at rest Hemodynamically stable and afebrile Chest-decreased breath sounds with widespread wheezing and crackles Heart-S1-S2, regular Abdomen-benign Extremities-negative for any edema Her admission labs, imaging studies reviewed Has asthma exacerbation with influenza CT did not show any embolism but did show pneumonia involving mainly the right lower Has been on cefepime and Steroid and bronchodilators Agree with assessment and plan as outlined above by CYNTHIA Garcia Dr (2) Pneumonia Laterality: right Lung location: unspecified part of lung Pneumonia type: due to unspecified organism Qualified Code(s): J18.9 - Pneumonia, unspecified organism
--- OUTSIDE RECORDS SUMMARY | 2023-08-03 18:17 | External Medical Summary | Summary of Care ---
Author Name Unknown Organization [facility] Address [address] [place] [address] Phone [phone] Care Team Providers Care Lens Silverer Name Role Phone Gemma Wright DO Primary Care Provider Reason for Visit * Reason Onset Date Comments Medication Refill 07/29/2023 Encounter Details Date Type Department Care Team (Late st Contact Info) Description 07/29/2023 Refill Family Practice [facility] [address] [facility] [place] [address] Blas Valentin DO 200 [facility] [place] [address] Moderate persistent asthma with acute exacerbation Allergies Active Allergy Reactions Criticality Noted Date Comments Chocolate Rash 07/24/2013 Dust 11/29/2015 Dust mites Gabapentin 10/19/2022 Other reaction(s): trouble breathing, swelling face, "sick" Oxycodone-Acetaminophen Hives 09/18/2007 Quinolones Tachycardia 07/24/2013 Sulfa Antibiotics Rash 06/07/2015 Sulfonamide Derivatives 05/20/2004 Hydrocodone-Acetaminophen Nausea/vomiting Medium 07/24 Headache documented as of this encounter (statuses as of 07/30/2023) Medications Medication Sig Dispensed Refills Start Date End Date Status VITAMIN D3 5000 UNITS PO CAPS 1 daily 0 Active Nebulizers (NEBULIZER COMPRESSOR) MISCIndications:Mo derate persistent asthma with acute exacerbation Use as needed 1 Each 1 08/13/2016 Active Respiratory Therapy Supplies (NEBULIZER/TUBING/ MOUTHPIECE) KITIndications:Mod erate persistent asthma with acute exacerbation Use as needed for asthma exacerbation- history of moderate persistent asthma. 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 (at least 30 min prior to breakfast or other meds) 90 Tablet 3 01/11/2023 Active TobraDex 0.3-0.1 % Ophthalmic Ointment (Tobramycin-Dexame thasone) Apply 0.25 inch ribbon of ointment to both upper eyelid incisions 4 times daily for 2 weeks then apply at bedtime for 4 weeks 3.5 g 2 02/21/2023 Active Additional Information Patient not taking.Reported on 05/23/2023 Albuterol Sulfate HFA 108 (90 Base) MCG/ACT Inhalation Aerosol SolutionIndication s:Acute bronchospasm inhale 2 puffs by mouth and INTO THE LUNGS four times a day 8.5 g 5 03/07/2023 Active Erythromycin 5 MG/GM Ophthalmic Ointment Instill 0.25 Inches into eye 3 times a day. Apply 0.25 inch ribbon of ointment to both upper eyelid incisions 4 at bedtime for 4 weeks 3.5 g 3 03/23/2023 Active Additional Information Patient not taking.Reported on 05/23/2023 Estazolam 2 MG Oral TabletIndications: Persistent insomnia Take 1 Tablet by mouth at bedtime. 90 Tablet 1 07/14/2023 Active Albuterol Sulfate (2.5 MG/3ML) 0.083% Inhalation Nebulization Solution (Proventil)Indicat ions:Moderate persistent asthma with acute exacerbation Inhale 1 Vial via nebulizer every 4 hours as needed for Wheezing. Inhale 1 Vial via nebulizer every 4 hours as needed for Wheezing. 120 mL 5 07/30/2023 Active Albuterol Sulfate (2.5 MG/3ML) 0.083% Inhalation Nebulization Solution (Proventil)Indicat ions:Moderate persistent asthma with acute exacerbation Inhale via nebulizer 1 Vial every 4 hours as needed for Wheezing. Inhale 1 Vial via nebulizer every 4 hours as needed for Wheezing. 120 mL 1 02/15/2022 3 Discontinue d(Refill) documented as of this encounter (statuses as of 07/30/2023) Active Problems Problem Noted Date Diagnosed Date History of lung cancer 11/04/2020 Overview: Grade 1A, s/p removal Pulmonary nodule 09/11/2019 Pain in joint of right shoulder 09/11/2019 Rosacea 09/30/2018 Chronic pain of left ankle 06/10/2017 Asthma, mild persistent 09/25/2013 Raynaud's syndrome 07/24/2013 ADD (attention deficit disorder) 07/24/2013 Generalized anxiety disorder 07/24/2013 Chronic insomnia 07/24/2013 GERD (gastroesophageal reflux disease) 3 Hyperlipidemia LDL goal <160 07/24/2013 Hypothyroidism 07/04/2006 documented as of this encounter (statuses as of 07/30/2023) Resolved Problems Problem Noted Date Diagnosed Date Resolved Date Prediabetes 09/20/2017 09/19/2019 Overview: Per Prediabetes protocol #1 Encounter for gynecological examination without abnormal finding 06/10/2017 04/07/2018 Overview: Dr. Ayala, for [employer]- does exam every other year Chronic cough 08/24/2016 10/28/2016 Conjunctival xerosis 09/06/2005 019 Asthma with severity to be determined 11/19/2004 09/25/2013 Overview: ICD-10 update of inactive term Allergic rhinitis 11/19/2004 11/05/2014 CHR ALLRG CONJUNCTIV NEC 11/19/2004 EXTRINSIC ASTHMA, UNSPEC(aka ASTHMA) 06/17/2004 09/25/2013 Prolonged QT interval 05/20/20042017 documented as of this encounter (statuses as of 07/30/2023) Immunizations Name Administration Dates Next Due COVID-19 mRNA, LNP-s, No Pre serve, 2-Dose Series (Moderna) 04/30/2022,06/01/2021,10/04/2020,08/09 COVID-19, mRNA, LNP-s, PF, B ooster, 100mcg/0.5mg (Moderna) 05/02/2023,11/12/2021 Covid-19, Mrna, Lnp-s, Pf, B ivalent, 30 Mcg, IM, 12 yrs and above (Pfizer) 04/30/2022 Hepatitis B, 20+ yrs 01/11/2023,08/11/2022,07/08 Pneumococcal Conjugate Vacc, 13 Valent (Prevnar) 06/29/2014 Pneumococcal Polysaccharide PPV23 (Pneumovax) 07/20/2016,08/08/2009,05/15/2007 RSV Vac., Bivalent, Perfusio n F, Pf,0.5 Ml (Abrysvo) 04/28/2023 Season Influenza, Cell Cultu re, 18+ Yrs, With Preserv (Flucelvax) 03/20/2019 Season Influenza, Quad, PF, Adjuvanted, 65+ Yrs, IM (FLUAD) 04/22/2023 Seasonal Influenza Virus Vac cine, Unspecified Formulation 04/22/2023,03/26/2021,03/25/2020,03/08,05/14/2018,04/05/2017,03/19/20 17,04/21/2016,05/09/2015,04/20/2014,0 04/21/2012,05/07/2008,05/04/2007,05/09,06/09/2004 Seasonal Influenza, PF, 6 M & above, IM , (FluLaval or Fluzone) 03/26/2021,03/25/2020,04/05/2017 Seasonal Influenza, Split, I IV3, With Preserve, Inj 05/09/2015,04/20/2014,04/19/2013,04/10,05/04/2007,05/09/2006 04/20/2015 Seasonal Influenza, Trivalen t, Adjuvanted, 65+ yrs 04/16/2022,05/14/2018 Seasonal Influenza, Trivalen t, High Dose, No Preserve, IM 03/19/2017,04/21/2016 TDAP (age 10 and older)(Boostrix) 08/07/2020,08/2010 Varicella Zoster Vaccine (Adult) 06/28/2007,1108/2006 Zoster Vaccine Recombinant (Shingrix) 04/02/2019 ,01/29/2019 documented as of this encounter Social History Tobacco Use Types Packs/Day Years Used Date Smoking Tobacco: Never Smokeless Tobacco: Never Comments:No passsive smoke e xposure Alcohol Use Standard Drinks/Week Comments No 0 (1 standard drink = 0.6 oz pur e alcohol) PHQ-2 Answer Date Recorded PHQ-2 Score 0 01/08/2020 Sex and Gender Information Value Date Recorded Sex Assigned at Female 03/27/2023 2:47 AM EDT Gender Identity Female 03/27/2023 2:47 AM EDT Sexual Orientation Straight 03/27/2023 2: 47 AM EDT Job Start Date Occupation Industry Not on file Not on file Not on file documented as of this encounter Miscellaneous Notes * Telephone Encounter - Alicia Hsieh RPh - 07/30/2023 10:22 PM EST Signed Prescriptions: Disp Refills Albuterol Sulfate (2.5 MG/3ML) 0.083% Inha*120 mL 5 Sig: Inhale 1 Vial via nebulizer every 4 hours as needed for Wheezing. Inhale 1 Vial via nebulizer every 4 hoursas needed for Wheezing.Authorizing Provider: GEMMA WRIGHT User: ALICIA HSIEH documented in this encounter Plan of Treatment Upcoming Encounters Date Type Department Care Team (Late st Contact Info) Description 08/22/2023 12:40 PM EST Office Visit Ophthalmology, [facility] [address] [facility] [place] [address] Justus Rosario, DO [address] [facility] [place] [address] 10/24/2023 1:40 PM EDT Office Visit Family Practice [facility] [address] [facility] [place] [address] Gemma Wright, 200 [facility] [place] [address] Health Maintenance Due Date Last Done Comments Depression Screening 01/07/2021 01/08/2020 TSH 10/20/2022 10/20/2021, 04/2021, 09/12/2019, Additional history exists COVID-19 Vaccine (2022- season) 2023 05/02/2023, 04/30/2022, 04/30/2022, Additional history exists DXA Scan 11/09/2029 11/09/2022, 07/17/2013 DTaP,Tdap,and Td Vaccines (3 - Td or Tdap) 08/07/2030 08/07/2020, 08/08/2010 Pneumococcal Vaccine: 65+ Years Completed 07/20/2016, 06/29/2014, 08/08/2009, Additional history exists Zoster Vaccines Completed 04/02/2019, 01/07, 06/28/2007, Additional history exists Colonoscopy Discontinued 04/21/2021, 04/08, 11/20/2018, Additional history exists Colorectal Cancer Screening Discontinued Hepatitis B Completed 01/11/2023, 11/2022, 07/08/2022 Influenza Vaccine (FLU shot) Completed 04/22/2023, 04/22/2023, 04/16/2022, Additional history exists Cologuard Discontinued Fecal Occult Blood Test Discontinued GARDASIL-HPV IMMUNIZATION SERIES Aged Out No longer eligible based on patient's age to complete this topic MENINGOCOCCAL (MENACTRA/MENVEO) Aged Out No longer eligible based on patient's age to complete this topic Sigmoidoscopy Discontinued documented as of this encounter Medical Devices Not on filedocumented as of this encounter Visit Diagnoses Diagnosis Moderate persistent asthma with acute exacerbation documented in this encounter Care Teams Lens Silverer Relationship Specialty Start Date End Date Gemma Wright DO [address] [place] [address] PCP - General Family Medicine 02/14/17 documented as of this encounter
[2023-08-03] MEDS ORDERED: DOXYCYCLINE HYCLATE 100 MG in DEXTROSE 5% MINI-B 100 ML IV STA (18:18)
[2023-08-03] MEDS ORDERED: POLYETHYLENE (MIRALAX) 17 GM PACK PO PRN (18:47)
[2023-08-03] MEDS ORDERED: SODIUM CHLORIDE 0.9% 1,000 ML IV SCH (18:47)
[2023-08-03] MEDS ORDERED: ONDANSETRON INJ 2 MG/ML 2 ML VIAL IV PRN (18:47)
[2023-08-03] MEDS ORDERED: ACETAMINOPHEN 325 MG TAB PO PRN (18:47)
[2023-08-03] MEDS ORDERED: ARTIFICIAL TEARS OP PRN (19:10)
[2023-08-03] MEDS: ALBUT/IPRATROP 3MG/0.5MG NEB 3 ML VIAL NEB SCH (19:40)
[2023-08-03] MEDS: guaiFENesin 600 MG TABCR PO SCH (21:44)
[2023-08-03] MEDS: ALBUT/IPRATROP 3MG/0.5MG NEB 3 ML VIAL NEB PRN (21:53)
[2023-08-03] MEDS: ENOXAPARIN INJ 40 MG/0.4 ML SYR SQ SCH (22:27)
[2023-08-03] MEDS: BENZONATATE 100 MG CAPSULE PO PRN (22:37)
[2023-08-04 00:23] LABS: Appearance Urine Clear (Clear); Bilirubin Urine Negative (Negative); Blood Urine Negative (Negative); Color Urine Yellow; Glucose Urine UA 1+ (Negative); Ketones Urine Negative (Negative); Leukocyte Esterase Urine Negative (Negative); Nitrite Urine Negative (Negative); Protein Urine Negative (Negative); Specific Gravity Urine 1.011 (1.000-1.030); Urobilinogen Urine Negative (Negative)
[2023-08-04] MEDS: methylPREDNISolone 40 MG in SYRINGE 0 ML IV SCH ×3 (01:24→18:44)
[2023-08-04] MEDS: CEFEPIME 2,000 MG in SYRINGE 0 ML IV SCH ×3 (01:24→20:56)
[2023-08-04] MEDS: ALBUT/IPRATROP 3MG/0.5MG NEB 3 ML VIAL NEB PRN (05:12)
[2023-08-04 05:42] LABS: BUN Creatinine Ratio 21.3 (10-20); Est GFR (African American) 111.2 ml/min; Est GFR (Non-African American) 95.9 ml/min; Potassium 4.1 mmol/L (3.5-5.1)
[2023-08-04 06:12] LABS: Basophils # (auto) 0.01 K/uL (0.00-0.20); Basophils % (auto) 0.1 %; Hematocrit (blood only) 38.5 % (37.0-47.0); Immature Granulocytes # (auto) 0.07 K/uL (0.01-0.20); Immature Granulocytes % (auto) 0.6 %; Lymphocytes # (auto) 0.92 K/uL (1.20-3.40); Lymphocytes % (auto) 7.3 %; Mean Corpuscular Hgb Conc 33.8 g/dL (32.0-36.0); Mean Corpuscular Volume 94.8 fL (80.0-100.0); Mean Platelet Volume 11.1 fL (9.4-12.4); Monocytes # (auto) 0.23 K/uL (0.11-0.59); Monocytes % (auto) 1.8 %; Neutrophils # (auto) 11.29 K/uL (1.40-6.50); Neutrophils % (auto) 90.2 %; Platelet Count 123 K/uL (130-400); RDW Coefficient of Variation 12.2 % (11.5-14.5); RDW Standard Deviation 42.7 fL (36.4-46.3); Red Blood Count 4.06 M/uL (4.20-5.40); White Blood Count 12.52 K/ul (4.8-10.8)
[2023-08-04] MEDS: ALBUT/IPRATROP 3MG/0.5MG NEB 3 ML VIAL NEB SCH ×4 (06:42→20:40)
[2023-08-04] MEDS: LEVOTHYROXINE SODIUM 88 MCG TABLET PO SCH (07:41)
[2023-08-04] MEDS: DOXYCYCLINE HYCLATE 100 MG in DEXTROSE 5% MINI-B 100 ML IV SCH ×2 (07:41→20:58)
[2023-08-04] MEDS: PANTOprazole 40 MG TAB PO SCH (08:01)
[2023-08-04] MEDS: guaiFENesin 600 MG TABCR PO SCH ×2 (08:01→20:57)
--- NOTE | 2023-08-04 14:45 | Hospitalist Progress Note ---
Date of Service August 04, 2023 Assessment & Plan (1) Influenza A: (2) Pneumonia: (3) Elevated troponin: (4) Hyponatremia: (5) History of lung cancer: (6) GERD (gastroesophageal reflux disease): (7) Hypothyroidism: Plan Patient is a 78-year-old female with PMHx significant for asthma, lung cancer s/p right lower lobectomy, HLD, hypothyroidism, anxiety, ADD, GERD, Raynaud's admitted with pneumonia and an influenza infection. Influenza A infection Pneumonia Asthma Exacerbation On admission pt afebrile, 93% on room air, other vitals stable. WBC elevated >18K, lactate WNL, Pro-Alban: 57, + influenza A CTA chest noted a pneumonia within the right upper and right middle lobes s/p right lower lobectomy, cardiomegaly, no PE. A follow-up chest CT in 2 months to ensure resolution is recommended. Blood cultures NGTD, consider sputum Cx Continue Cefepime and doxycycline Solu-Medrol 40 mg every 8 hours Isolation precautions No Tamiflu given 5 days from symptom onset Supplemental oxygen as needed Incentive spirometry Cecy Ennis Consider pulm consult if symptoms w/o improvement in setting of pt's Hx of lobectomy/lung cancer Elevated troponin Initial troponin 14.3 with repeat normalizing at 9.9 EKG sinus rhythm with no acute ST changes noted Likely demand from underlying pneumonia, doubt ACS Consider echo Hyponatremia Na: 132 on admission Currently wnl Continue to monitor with daily labs History of lung cancer Per pt, Stage 1 lung cancer diagnosed a few years ago S/P right lower lobectomy Follows with [facility] Denies smoking Hx GERD (gastroesophageal reflux disease) Continue PPI Hypothyroidism Continue levothyroxine Insomnia Pt on non-formulary estazolam at home On restoril while hospitalized Diet: Vegetarian DVT Prophylaxis: Lovenox SQ CODE STATUS: DNR/DNI Dispo: PT/OT orders in, will possibly need 2 step Admission and Anticipated Discharge Date Admission Date: August 03, 2023 Subjective Pt was seen while still down in the ED awaiting a room. Stated that she felt the same. Still coughing, SOB, does not use oxygen at baseline. Notes Stage 1 lung cancer history with lobectomy. Follows with [facility]. Denies a smoking Hx. Hx of asthma. Otherwise denies concerns Review of Systems Review of Systems: All systems reviewed & are unremarkable except as noted in Subjective Physical Exam Physical Exam: General: Alert, oriented. Skin: No noted rashes or bruises Psych: Appropriate mood and affect Neuro: No gross deficits while sitting in bed HEENT: NC/AT CV: RRR Resp: Breath sounds coarse bilaterally, coughing during the exam Abdomen:Soft, nontender, nondistended. Extremities: No edema in lower extremities bilaterally. Results & Data Results & Data Vital Signs (Past 12 Hours) Vital Signs Pulse Pulse Resp BP Pulse Ox O2 Del Method O2 Flow Rate 08/04/23 11:07 88 18 90 Room Air 08/04/23 07:14 84 08/04/23 06:42 86 20 93 Room Air 08/04/23 06:00 78 27 H 92 Oxymask 4 08/04/23 04:00 90 18 125/69 93 (2) Pneumonia Laterality: right Lung location: unspecified part of lung Pneumonia type: due to unspecified organism Qualified Code(s): J18.9 - Pneumonia, unspecified organism
[2023-08-04] MEDS: LORazepam 0.5 MG TAB PO PRN (20:08)
[2023-08-04] MEDS: ENOXAPARIN INJ 40 MG/0.4 ML SYR SQ SCH (21:43)
[2023-08-04] MEDS: TEMAZEPAM 15 MG CAPSULE PO SCH (21:47)
[2023-08-04] MEDS: BENZONATATE 100 MG CAPSULE PO PRN (22:54)
[2023-08-05] MEDS: methylPREDNISolone 40 MG in SYRINGE 0 ML IV SCH ×3 (01:23→21:35)
[2023-08-05] MEDS: CEFEPIME 2,000 MG in SYRINGE 0 ML IV SCH ×3 (01:23→18:47)
[2023-08-05] MEDS ORDERED: DEXTROMETHORPHAN POLYMR COMPLX 60 MG/10 ML UDP PO PRN (01:47)
[2023-08-05] MEDS: LEVOTHYROXINE SODIUM 88 MCG TABLET PO SCH (06:26)
[2023-08-05] MEDS: ALBUT/IPRATROP 3MG/0.5MG NEB 3 ML VIAL NEB SCH ×4 (07:22→20:20)
[2023-08-05] MEDS: BENZONATATE 100 MG CAPSULE PO PRN (08:20)
[2023-08-05] MEDS: PANTOprazole 40 MG TAB PO SCH (08:20)
[2023-08-05] MEDS: guaiFENesin 600 MG TABCR PO SCH ×3 (08:20→21:39)
[2023-08-05] MEDS: DOXYCYCLINE HYCLATE 100 MG in DEXTROSE 5% MINI-B 100 ML IV SCH ×2 (08:21→19:33)
[2023-08-05 09:21] LABS: Basophils # (auto) 0.03 K/uL (0.00-0.20); Basophils % (auto) 0.2 %; Hematocrit (blood only) 39.4 % (37.0-47.0); Immature Granulocytes # (auto) 0.26 K/uL (0.01-0.20); Lymphocytes # (auto) 1.25 K/uL (1.20-3.40); Lymphocytes % (auto) 9.4 %; Mean Corpuscular Hemoglobin 31.4 pg (25.0-34.0); Mean Corpuscular Volume 95.2 fL (80.0-100.0); Mean Platelet Volume 10.1 fL (9.4-12.4); Monocytes # (auto) 0.58 K/uL (0.11-0.59); Monocytes % (auto) 4.4 %; Neutrophils # (auto) 11.18 K/uL (1.40-6.50); Platelet Count 195 K/uL (130-400); RDW Coefficient of Variation 12.4 % (11.5-14.5); RDW Standard Deviation 43.7 fL (36.4-46.3); Red Blood Count 4.14 M/uL (4.20-5.40)
[2023-08-05 09:40] LABS: BUN Creatinine Ratio 28.6 (10-20); Calcium 9.6 mg/dl (8.6-10.3); Creatinine Clr Calc Pharmacy 101.8 ml/min; Est GFR (African American) 109.7 ml/min; Est GFR (Non-African American) 94.6 ml/min; Potassium 3.7 mmol/L (3.5-5.1)
[2023-08-05 09:58] LABS: Phosphorus 1.5 mg/dl (2.5-4.9)
--- NOTE | 2023-08-05 10:12 | Pulmonary Consultation ---
Date of Consultation August 05, 2023 Assessment & Plan (1) History of lung cancer: (2) Pneumonia: Laterality: right Lung location: unspecified part of lung P neumonia type: due to unspecified organism Qualified Code(s): J18.9 - Pneumonia, unspecified organism (3) Influenza A: (4) SOB (shortness of breath): (5) Acute respiratory failure with hypoxia: (6) Asthma: Plan CTA chest 08/03/2023 personally reviewed: Dense consolidative process appreciated in the right upper lobe Motion degraded study Elevated right hemidiaphragm No significant mediastinal lymphadenopathy -- Acute hypoxic respiratory failure Secondary to right upper lobe pneumonia Respiratory bio fire positive for influenza A, negative for everything else on 08/03/2023 Procalcitonin 57 -- History of lung cancer S/p right lower lobectomy, stage I Lifetime non-smoker --History of asthma Diagnosed in her 50s Uses only albuterol as needed Plan: Patient does have dense consolidative process with elevated procalcitonin, I do think patient has bacterial pneumonia on top of influenza A Continue with antibiotics Given the wheezing start the patient on budesonide and Brovana Hypertonic saline nebulizers also be added along with flutter valve to help bring up the phlegm Follow-up sputum culture Follow-up nasal MRSA Case discussed with RN Please note the above document was generated using voice recognition software. It may contain grammatical, syntax or spelling errors.Any formal questions or concerns about the content, text or information contained within the body of this dictation should be directly addressed to the provider for clarification. History of Present Illness Attending Physician: Kamila Pollard MD History of Present Illness 78-year-old female presented to the hospital for shortness of breath Past medical history: Lung cancer s/p right lower lobectomy, dyslipidemia, hypothyroidism, anxiety, GERD, Raynaud's Pulmonary consulted for the same At the time of examination patient was not any respiratory distress She was breathing in the mid teens. She was coughing. Does state that she has difficulty bringing up the phlegm Denies any chest pain No dysuria, no diarrhea. When she does bring up phlegm is mostly clear. Denies any hemoptysis. Positive subjective fever and chills No headache, no blurry vision Social history: Lifetime non-smoker. Works as a historian No pets at home. No birds or poultry nearby No family history of asthma. Patient was diagnosed with asthma at the age of 52 No history of lung cancer in the family Allergies Allergy/AdvReac Type Severity Reaction Status Date / Time gabapentin Allergy Severe TROUBLE Verified 08/03/23 17:04 BREATHING, FACE SWELLED, VOMITING latex Allergy Severe Difficulty Verified 08/03/23 17:03 Breathing chocolate Allergy Intermediate Rash Verified 08/03/23 19:09 oxycodone [From Percocet] Allergy Intermediate Hives Verified 08/03/23 17:03 Sulfa (Sulfonamide Allergy Intermediate Rash Verified 08/03/23 17:03 Antibiotics) Quinolones AdvReac Severe Tachycardia Verified 08/03/23 17:03 hydrocodone [From Vicodin] AdvReac Intermediate nausea/vomi Verified 08/03/23 17:03 ting Home Medications Medication Instructions Recorded Confirmed Type albuterol sulfate 2.5 mg/3 mL 2.5 mg inhalation Q4 PRN Wheezing 05/29/19 08/03/23 History (0.083 %) solution for nebulization albuterol sulfate 90 mcg/actuation 2 puff inhalation QID PRN Wheezing 05/29/19 08/03/23 History aerosol inhaler (ProAir HFA) cholecalciferol (vitamin D3) 125 5,000 unit PO QDL 05/29/19 08/03/23 History mcg (5,000 unit) tablet (Vitamin D3) estazolam 2 mg tablet 2 mg PO HS 05/29/19 08/03/23 History levothyroxine 88 mcg tablet 88 mcg PO QAM 05/29/19 08/03/23 History omeprazole 20 mg capsule,delayed 20 mg PO QAM 05/29/19 08/03/23 History release peg 400-propylene glycol (PF) 0.4 1 drp ophthalmic (eye) BID PRN Dry 08/03/23 08/03/23 History %-0.3 % eye drops in a dropperette Eye(S) (Systane (PF)) Patient History Medical History (Updated 08/05/23 @ 10:12 by Primitivo Marmolejo MD, [facility]) Chest pain thought to be GI related per pt, reason egd but also referred to dr. ibanez (new pt appt 04/23 per pt) Fear of needles Osteoarthritis Bloating Intermittent diarrhea Diverticular disease GERD (gastroesophageal reflux disease) Hypothyroidism History of lung cancer dx 2019; sx White coat syndrome without diagnosis of hypertension Prolonged QT interval has not been to a citrix administrator but reports Dr. Jimenez referred her to Dr. Ibanez given current symptoms, appt is Th04/23. prolonged QT interval is not a new finding per pt History of cystitis Asthma uses PRN inh 1xwk on avg Surgical History History of hemorrhoidectomy History of x 2 History of tonsillectomy History of right shoulder replacement History of bilateral knee replacement History of esophagogastroduodenoscopy (EGD) History of colonoscopy S/P lobectomy of lung RLL History of surgery on wrist History of oophorectomy History of hysterectomy History of cholecystectomy History of uvulectomy per pt, uvulectomy was a medical mistake during tonsillectomy as a teen Family History Other No family history of adverse response to anesthesia Social History Smoking Status: Never smoker Second Hand Exposure: No; Do You Dip or Chew Tobacco: No; Hx Alcohol Use: No Hx Substance Use: No Preferred Language: Icelandic Communication Ability: Effective Tubing Mill Setter Required: No Beliefs That Will Affect Care: None Current Living Situation: Spouse Feels Safe at Home: Yes Safety Concerns: Feels Safe At This Time Assistive Devices: Walker Review of Systems 2 Review of Systems: All systems reviewed & are unremarkable except as noted in HPI & below Physical Exam 2 Physical Exam: Constitutional: No acute distress HEENT: EOMI, PERRLA Respiratory system: Decreased air entry bilaterally, no rhonchi, positive expiratory wheeze bilaterally, positive crackles bilaterally CVS: S1-S2 positive, no murmurs or gallops Abdomen: Soft, nontender, nondistended, positive bowel sounds x4 Extremities: +2 pulses bilaterally radialis/ dorsalis pedis, no cyanosis, no edema Neuro: Awake alert oriented x3 Psych: Normal mood and affect G/U: No Vargas Skin: no rashes, warm and dry Lymphatic: no cervical or axillary lymphadenopathy Results & Data Results & Data Vital Signs (Past 12 Hours) Vital Signs Temp Pulse Pulse Resp BP Pulse Ox O2 Del Method 08/05/23 08:04 36.6 C 85 16 155/70 H 89 L Room Air 08/05/23 07:35 86 08/05/23 07:22 82 18 94 Room Air 08/05/23 02:45 84 20 153/64 H 91 Room Air 08/05/23 01:02 96 H 08/04/23 23:06 36.7 C 80 20 135/71 91 Room Air 08/04/23 22:36 Room Air Laboratory Results 08/05/23 09:02 08/05/23 09:02 PG Care Time/CCT Total # of Minutes Spent Total Time Spent with Patient: Total time spent is greater than 50% in coordination of care (as documented) at patient's floor/unit and/or counseling patient: [place] [address] INT INP/OBS CARE 3/75MIN Patient Type New Diagnoses History of lung cancer Z85.118 Pneumonia J18.9 Laterality: right Lung location: unspecified part of lung Pneumonia type: due to unspecified organism Influenza A J10.1 SOB (shortness of breath) R06.02 Acute respiratory failure with hypoxia J96.01 Asthma J45.909
[2023-08-05] MEDS ORDERED: POTASSIUM PHOS 3 MMOL/1 ML INFUSION IV STA (10:34)
[2023-08-05] MEDS ORDERED: POTASSIUM PHOSPHATE 24 MMOL in SODIUM CHLORIDE 0.9% 500 ML IV ONE (11:00)
--- NOTE | 2023-08-05 11:11 | Electrocardiogram Report ---
Test Reason : Blood Pressure : / mmHG Vent. Rate : 077 BPM Atrial Rate : 077 BPM P-R Int : 154 ms QRS Dur : 098 ms QT Int : 386 ms P-R-T Axes : 037 -03 020 degrees QTc Int : 436 ms Normal sinus rhythm Normal ECG When compared with ECG of 03-AUG-2023 14:06, No significant change was found Confirmed by Dg Velazco ([id number]) on 08/05/2023 11:11:17 AM Referred By: REFERRED SELF Confirmed By:Diomedes Velazco
--- NOTE | 2023-08-05 14:23 | Hospitalist Progress Note ---
Date of Service August 05, 2023 Assessment & Plan (1) Influenza A: (2) Pneumonia: (3) Elevated troponin: (4) Hyponatremia: (5) History of lung cancer: (6) GERD (gastroesophageal reflux disease): (7) Hypothyroidism: Plan Patient is a 78-year-old female with PMHx significant for asthma, lung cancer s/p right lower lobectomy, HLD, hypothyroidism, anxiety, ADD, GERD, Raynaud's admitted with pneumonia and an influenza infection. Influenza A infection Pneumonia Asthma Exacerbation On admission pt afebrile, 93% on room air, other vitals stable. WBC elevated >18K, lactate WNL, Pro-Alban: 57, + influenza A CTA chest noted a pneumonia within the right upper and right middle lobes s/p right lower lobectomy, cardiomegaly, no PE. A follow-up chest CT in 2 months to ensure resolution is recommended. Blood cultures NGTD, consider sputum Cx Continue Cefepime and doxycycline Solu-Medrol 40 mg every 8 hours intially, currently q12 Isolation precautions No Tamiflu given 5 days from symptom onset Supplemental oxygen as needed Incentive spirometry DuoNebs Mucinex, Cecy Palacios Pulm consult in setting of pneumonia with Hx of lobectomy. Appreciate recs -MRSA swab (negative), follow sputum Cx (pending), nebs scheduled Elevated troponin Initial troponin 14.3 with repeat normalizing at 9.9 EKG sinus rhythm with no acute ST changes noted Likely demand from underlying pneumonia, doubt ACS Consider echo Hyponatremia Na: 132 on admission Currently wnl Continue to monitor with daily labs History of lung cancer Per pt, Stage 1 lung cancer diagnosed a few years ago S/P right lower lobectomy Follows [place] [facility] [place] Denies smoking Hx GERD (gastroesophageal reflux disease) Continue PPI Hypothyroidism Continue levothyroxine Insomnia Pt on non-formulary estazolam at home On restoril while hospitalized Diet: Vegetarian DVT Prophylaxis: Lovenox SQ CODE STATUS: DNR/DNI Dispo: PT/OT orders in, will possibly need 2 step Admission and Anticipated Discharge Date Admission Date: August 03, 2023 Subjective Pt was seen with at bedside. Stated that she had started to see some improvement. Would like to go home. No longer requiring supplemental oxygen at rest. Review of Systems 2 Review of Systems: All systems reviewed & are unremarkable except as noted in Subjective Physical Exam Physical Exam: General: Alert, oriented. Skin: No noted rashes or bruises Psych: Appropriate mood and affect Neuro: No gross deficits while sitting in bed HEENT: NC/AT CV: RRR Resp: Breath sounds coarse bilaterally, some wheezing appreciated Abdomen:Soft, nontender, nondistended. Extremities: No edema in lower extremities bilaterally. Results & Data Results & Data Vital Signs (Past 12 Hours) Vital Signs Temp Pulse Pulse Resp BP Pulse Ox O2 Del Method 08/05/23 11:41 36.4 C L 87 15 152/78 H 92 Room Air 08/05/23 11:02 94 H 14 89 L Nasal Cannula 08/05/23 08:15 Nasal Cannula 08/05/23 08:04 36.6 C 85 16 155/70 H 89 L Room Air 08/05/23 07:35 86 08/05/23 07:22 82 18 94 Room Air 08/05/23 02:45 84 20 153/64 H 91 Room Air O2 Flow Rate FiO2 08/05/23 11:41 08/05/23 11:02 21 08/05/23 08:15 2 08/05/23 08:04 08/05/23 07:35 08/05/23 07:22 08/05/23 02:45 (2) Pneumonia Laterality: right Lung location: unspecified part of lung Pneumonia type: due to unspecified organism Qualified Code(s): J18.9 - Pneumonia, unspecified organism
[2023-08-05] MEDS: BUDESONIDE 0.25 MG/2 ML VIAL (PULMICORT) NEB SCH (20:19)
[2023-08-05] MEDS: FORMOTEROL 20 MCG/2 ML VIAL INH SCH (20:19)
[2023-08-05] MEDS: SODIUM CHLOR 7% 4 ML NEB NEB SCH (20:19)
[2023-08-05] MEDS: ENOXAPARIN INJ 40 MG/0.4 ML SYR SQ SCH (21:37)
[2023-08-05] MEDS: TEMAZEPAM 15 MG CAPSULE PO SCH (21:41)
[2023-08-05] MEDS: LORazepam 0.5 MG TAB PO PRN (21:47)
[2023-08-06] MEDS: CEFEPIME 2,000 MG in SYRINGE 0 ML IV SCH ×2 (03:00→11:40)
[2023-08-06] MEDS: LEVOTHYROXINE SODIUM 88 MCG TABLET PO SCH (05:22)
[2023-08-06] MEDS: ALBUT/IPRATROP 3MG/0.5MG NEB 3 ML VIAL NEB PRN (05:43)
--- NOTE | 2023-08-06 08:17 | Pulmonology Progress Note ---
Date of Service August 06, 2023 Assessment & Plan (1) History of lung cancer: (2) Pneumonia: Laterality: right Lung location: unspecified part of lung P neumonia type: due to unspecified organism Qualified Code(s): J18.9 - Pneumonia, unspecified organism (3) Influenza A: (4) SOB (shortness of breath): (5) Acute respiratory failure with hypoxia: (6) Asthma: Plan CTA chest 08/03/2023 personally reviewed: Dense consolidative process appreciated in the right upper lobe Motion degraded study Elevated right hemidiaphragm No significant mediastinal lymphadenopathy -- Acute hypoxic respiratory failure Secondary to right upper lobe pneumonia Respiratory bio fire positive for influenza A, negative for everything else on 08/03/2023 Procalcitonin 57 Nasal MRSA negative -- History of lung cancer S/p right lower lobectomy, stage I Lifetime non-smoker --History of asthma Diagnosed in her 50s Uses only albuterol as needed Plan: Continue with antibiotics Continue with budesonide and Brovana Hypertonic saline nebulizers also be added along with flutter valve to help bring up the phlegm Follow-up sputum culture Decrease Solu-Medrol to 40mg daily Case discussed with RN Please note the above document was generated using voice recognition software. It may contain grammatical, syntax or spelling errors.Any formal questions or concerns about the content, text or information contained within the body of this dictation should be directly addressed to the provider for clarification. Admission and Anticipated Discharge Date Admission Date: August 03, 2023 Subjective Patient seen and examined at bedside. No acute distress, no events overnight She says she is feeling better compared to yesterday. Bringing up clear phlegm. Denies any nausea vomiting Fair appetite. Was frustrated today as she got an email stating that one of the documentation in the chart stated that she is not good with mobility. I did reassure her that I will her message to the primary team so that they can addend their note. Review of Systems 2 Review of Systems: All systems reviewed & are unremarkable except as noted in Subjective Physical Exam 2 Physical Exam: Constitutional: No acute distress HEENT: EOMI, PERRLA Respiratory system: Decreased air entry bilaterally, no rhonchi, minimal expiratory wheeze bilaterally, positive crackles bilaterally CVS: S1-S2 positive, no murmurs or gallops Abdomen: Soft, nontender, nondistended, positive bowel sounds x4 Extremities: +2 pulses bilaterally radialis/ dorsalis pedis, no cyanosis, no edema Neuro: Awake alert oriented x3 Psych: Normal mood and affect G/U: No Vargas Skin: no rashes, warm and dry Lymphatic: no cervical or axillary lymphadenopathy Results & Data Results & Data Vital Signs (Past 12 Hours) Vital Signs Temp Pulse Pulse Resp BP BP Pulse Ox 08/06/23 08:05 36.5 C 68 17 155/70 H 94 08/06/23 07:15 74 08/06/23 05:43 82 18 93 08/06/23 04:08 36.8 C 93 H 20 156/73 H 91 08/06/23 00:18 36.7 C 82 18 154/73 H 93 08/05/23 23:00 74 08/05/23 20:30 77 20 95 08/05/23 20:23 36.9 C 76 24 158/78 H 93 O2 Del Method 08/06/23 08:05 Room Air 08/06/23 07:15 08/06/23 05:43 Room Air 08/06/23 04:08 Room Air 08/06/23 00:18 Room Air 08/05/23 23:00 08/05/23 20:30 Room Air 08/05/23 20:23 Room Air Laboratory Results 08/05/23 09:02 08/05/23 09:02 PG Care Time/CCT Total # of Minutes Spent Total Time Spent with Patient: Total time spent is greater than 50% in coordination of care (as documented) at patient's floor/unit and/or counseling patient: Coding Level of Care Code 35889 SUB INP/OBS CARE 3/50MIN Diagnoses History of lung cancer Z85.118 Pneumonia J18.9 Laterality: right Lung location: unspecified part of lung Pneumonia type: due to unspecified organism Influenza A J10.1 SOB (shortness of breath) R06.02 Acute respiratory failure with hypoxia J96.01 Asthma J45.909
[2023-08-06] MEDS: BUDESONIDE 0.25 MG/2 ML VIAL (PULMICORT) NEB SCH (08:24)
[2023-08-06] MEDS: SODIUM CHLOR 7% 4 ML NEB NEB SCH (08:24)
[2023-08-06] MEDS: ALBUT/IPRATROP 3MG/0.5MG NEB 3 ML VIAL NEB SCH ×2 (08:24→12:18)
[2023-08-06] MEDS: FORMOTEROL 20 MCG/2 ML VIAL INH SCH (08:24)
[2023-08-06 08:35] LABS: Basophils # (auto) 0.06 K/uL (0.00-0.20); Basophils % (auto) 0.4 %; Eosinophils # (auto) 0.01 K/uL (0.00-0.50); Eosinophils % (auto) 0.1 %; Hematocrit (blood only) 38.6 % (37.0-47.0); Hemoglobin 12.9 g/dl (12.0-16.0); Immature Granulocytes # (auto) 0.68 K/uL (0.01-0.20); Immature Granulocytes % (auto) 4.6 %; Lymphocytes # (auto) 1.93 K/uL (1.20-3.40); Lymphocytes % (auto) 13.1 %; Mean Corpuscular Hemoglobin 31.6 pg (25.0-34.0); Mean Corpuscular Hgb Conc 33.4 g/dL (32.0-36.0); Mean Corpuscular Volume 94.6 fL (80.0-100.0); Monocytes # (auto) 1.06 K/uL (0.11-0.59); Monocytes % (auto) 7.2 %; Neutrophils # (auto) 11.02 K/uL (1.40-6.50); Neutrophils % (auto) 74.6 %; Platelet Count 217 K/uL (130-400); RDW Coefficient of Variation 12.5 % (11.5-14.5); RDW Standard Deviation 43.8 fL (36.4-46.3); Red Blood Count 4.08 M/uL (4.20-5.40); White Blood Count 14.76 K/ul (4.8-10.8)
[2023-08-06] MEDS: BENZONATATE 100 MG CAPSULE PO PRN (08:38)
[2023-08-06] MEDS: methylPREDNISolone 40 MG in SYRINGE 0 ML IV SCH (08:40)
[2023-08-06] MEDS: PANTOprazole 40 MG TAB PO SCH (08:40)
[2023-08-06] MEDS: DOXYCYCLINE HYCLATE 100 MG in DEXTROSE 5% MINI-B 100 ML IV SCH (08:40)
[2023-08-06] MEDS: guaiFENesin 600 MG TABCR PO SCH (08:40)
[2023-08-06 09:11] LABS: BUN Creatinine Ratio 31.9 (10-20); Calcium 9.4 mg/dl (8.6-10.3); Creatinine Clr Calc Pharmacy 106.1 ml/min; Est GFR (African American) 111.2 ml/min; Est GFR (Non-African American) 95.9 ml/min; Phosphorus 2.6 mg/dl (2.5-4.9)
--- NOTE | 2023-08-06 11:12 | Hospitalist Progress Note ---
Date of Service August 06, 2023 Assessment & Plan (1) Influenza A: (2) Pneumonia: (3) Elevated troponin: (4) Hyponatremia: (5) History of lung cancer: (6) GERD (gastroesophageal reflux disease): (7) Hypothyroidism: Plan Patient is a 78-year-old female with PMHx significant for asthma, lung cancer s/p right lower lobectomy, HLD, hypothyroidism, anxiety, ADD, GERD, Raynaud's admitted with pneumonia and an influenza infection. Influenza A infection Pneumonia Asthma Exacerbation On admission pt afebrile, 93% on room air, other vitals stable. WBC elevated >18K, lactate WNL, Pro-Alban: 57, + influenza A CTA chest noted a pneumonia within the right upper and right middle lobes s/p right lower lobectomy, cardiomegaly, no PE. A follow-up chest CT in 2 months to ensure resolution is recommended. Blood cultures NGTD, consider sputum Cx Continue Cefepime and doxycycline Solu-Medrol 40 mg every 8 hours intially, currently q12 Isolation precautions No Tamiflu given 5 days from symptom onset Supplemental oxygen as needed Incentive spirometry DuoNebs Mucinex, Cecy Palacios Pulm consult in setting of pneumonia with Hx of lobectomy. Appreciate recs -MRSA swab (negative), follow sputum Cx (pending), nebs scheduled Elevated troponin Initial troponin 14.3 with repeat normalizing at 9.9 EKG sinus rhythm with no acute ST changes noted Likely demand from underlying pneumonia, doubt ACS Consider echo Hyponatremia Na: 132 on admission Currently wnl Continue to monitor with daily labs History of lung cancer Per pt, Stage 1 lung cancer diagnosed a few years ago S/P right lower lobectomy Follows with [facility] [place] Denies smoking Hx GERD (gastroesophageal reflux disease) Continue PPI Hypothyroidism Continue levothyroxine Insomnia Pt on non-formulary estazolam at home On restoril while hospitalized Diet: Vegetarian DVT Prophylaxis: Lovenox SQ CODE STATUS: DNR/DNI Dispo: PT/OT orders in, will possibly need 2 step Admission and Anticipated Discharge Date Admission Date: August 03, 2023 Physical Exam Physical Exam: General: Alert, oriented. Skin: No noted rashes or bruises Psych: Appropriate mood and affect Neuro: No gross deficits while sitting in bed HEENT: NC/AT CV: RRR Resp: Breath sounds coarse bilaterally, some wheezing appreciated Abdomen:Soft, nontender, nondistended. Extremities: No edema in lower extremities bilaterally. Results & Data Results & Data Vital Signs (Past 12 Hours) Vital Signs Temp Pulse Pulse Resp BP BP Pulse Ox 08/06/23 08:26 72 20 91 08/06/23 08:05 36.5 C 68 17 155/70 H 94 08/06/23 08:00 08/06/23 07:15 74 08/06/23 05:43 82 18 93 08/06/23 04:08 36.8 C 93 H 20 156/73 H 91 08/06/23 00:18 36.7 C 82 18 154/73 H 93 O2 Del Method 08/06/23 08:26 Room Air 08/06/23 08:05 Room Air 08/06/23 08:00 Room Air 08/06/23 07:15 08/06/23 05:43 Room Air 08/06/23 04:08 Room Air 08/06/23 00:18 Room Air (2) Pneumonia Laterality: right Lung location: unspecified part of lung Pneumonia type: due to unspecified organism Qualified Code(s): J18.9 - Pneumonia, unspecified organism
--- NOTE | 2023-08-06 16:48 | Discharge Summary ---
Discharge Summary Date of Service August 06, 2023 Notes For Next Care Provider Please ensure close follow up with Pulmonology A follow-up chest CT in 2 months/8 weeks to ensure resolution of pneumonia is recommended. Medication Changes From Visit Prednisone 40mg daily for 3 more days Cefdinir 300mg BID x 10 days Doxycycline 100mg BID x 10 days Admission HPI Per Admitting Provider Patient is 78-year-old female with PMH asthma, lung cancer s/p right lower lobectomy, HLD, hypothyroidism, anxiety, ADD, GERD, Raynaud's presented to ER with complaint of cough x 5 days. History obtained from patient, patient's son and outpatient chart. States last week had influenza. Patient states 5 days ago started with LOGAN, malaise, myalgias, congestion, sore throat, nonproductive cough. States has had chills. Has not been taking temperature at home. Patient states symptoms have continued and cough has worsened. Patient states coughing almost to the point of vomiting. States feels like needs to cough phlegm out however is unable to expel. Also reports chest tightness and wheezing the last several days. She has tried OTC Tylenol, Motrin, Delsym without much relief. Patient has been using albuterol nebulizer couple times a day. States the past 2 days has had 3-4 episodes of loose stool daily. States has not had any diarrhea today. Decreased appetite and oral intake past few days. Denies diaphoresis, N/V, dizziness, syncope, vision changes, neck pain, palpitations, hemoptysis, choking, ear discharge, abdominal pain, paresthesias, extremity weakness, extremity edema, rashes, urinary symptoms. Admission Exam Per Admitting Provider General: +ill appearing, + coughing, WDWN Head: normocephalic, atraumatic Eyes: PERRL, EOM's intact, conjunctiva non-injected, anicteric ENT: normal inspection external ears, bilateral TM's without erythema and are non-bulging, nose, mucous membranes moist Neck: supple, trachea midline Lungs: +cough, +wheezing throughout, +rales RUL, RML, sats 94% on RA, no respiratory distress CV: RRR, no murmur, no pretibial edema Abd: normal BS, soft, non-tender Ext: no cyanosis, no calf tenderness Neuro: A&O x 3, no focal deficits noted, normal affect Skin: warm, dry Principal Dx & Hospital Course #1 = Principal Diagnosis (1) Influenza A: (2) Pneumonia: (3) Elevated troponin: (4) Hyponatremia: (5) History of lung cancer: (6) GERD (gastroesophageal reflux disease): (7) Hypothyroidism: Plan Patient is a 78-year-old female with PMHx significant for asthma, lung cancer s/p right lower lobectomy, HLD, hypothyroidism, anxiety, ADD, GERD, Raynaud's admitted with pneumonia and an influenza infection. Influenza A infection Pneumonia Asthma Exacerbation On admission pt afebrile, 93% on room air, other vitals stable. WBC elevated >18K, lactate WNL, Pro-Alban: 57, tested positive for influenza A CTA chest noted a pneumonia within the right upper and right middle lobes s/p right lower lobectomy, cardiomegaly, no PE. A follow-up chest CT in 2 months/8 weeks to ensure resolution is recommended. Blood cultures NGTD, sputum Cx NGTD at this time Treated with IV Cefepime and doxycycline. Transitioned to cefdinir 300mg BID and doxycycline 100mg BID x 10 days on discharge. Solu-Medrol 40 mg every 8 hours initially and weaned down to po prednisone 40mg daily for 3 more days on discharge. Isolation precautions No Tamiflu given since pt was 5 days from symptom onset Supplemental oxygen as needed Incentive spirometry Cecy Ennis Pulm consult in setting of pneumonia with Hx of lobectomy -recommended to continue with antibiotics for 7-10 days -recommended follow up CT chest in 8 weeks. PCP and pulmonology followup after discharge- pt states she follows with pulmonology at [facility] [place]. Elevated troponin Initial troponin 14.3 with repeat normalizing at 9.9 EKG sinus rhythm with no acute ST changes noted Likely demand from underlying pneumonia, doubt ACS PCP follow up Hyponatremia Na: 132 on admission Currently wnl PCP followup History of lung cancer Per pt, Stage 1 lung cancer diagnosed a few years ago S/P right lower lobectomy Follows with [facility] [place] Denies smoking Hx pulmonology follow up GERD (gastroesophageal reflux disease) Continue PPI Hypothyroidism Continue levothyroxine Insomnia Continue home estazolam at home Discharge Exam General: Alert, oriented. Psych: Appropriate mood and affect Neuro: No gross deficits while sitting in bed HEENT: NC/AT CV: RRR Resp: Breath sounds coarse bilaterally, some wheezing appreciated Abdomen:Soft, nontender, nondistended. Extremities: No edema in lower extremities bilaterally. Updated Medication List Medication Instructions Recorded Confirmed Type albuterol sulfate 2.5 mg/3 mL 2.5 mg inhalation Q4 PRN Wheezing 05/29/19 08/03/23 History (0.083 %) solution for nebulization albuterol sulfate 90 mcg/actuation 2 puff inhalation QID PRN Wheezing 05/29/19 08/03/23 History aerosol inhaler (ProAir HFA) cholecalciferol (vitamin D3) 125 5,000 unit PO QDL 05/29/19 08/03/23 History mcg (5,000 unit) tablet (Vitamin D3) estazolam 2 mg tablet 2 mg PO HS 05/29/19 08/03/23 History levothyroxine 88 mcg tablet 88 mcg PO QAM 05/29/19 08/03/23 History omeprazole 20 mg capsule,delayed 20 mg PO QAM 05/29/19 08/03/23 History release peg 400-propylene glycol (PF) 0.4 1 drp ophthalmic (eye) BID PRN Dry 08/03/23 08/03/23 History %-0.3 % eye drops in a dropperette Eye(S) (Systane (PF)) cefdinir 300 mg capsule 300 mg PO BID #20 caps 08/06/23 Rx doxycycline hyclate 100 mg tablet 100 mg PO BID #20 tabs 08/06/23 Rx prednisone 20 mg tablet 40 mg (2 x 20 mg) PO DAILY #6 tabs 08/06/23 Rx Hospital Stay Data Consultations 08/03/23 17:04 ED Decision to Admit Stat 08/05/23 09:25 Consult Pulmonology Routine Diagnostic Imagining Performed 08/03/23 13:32 CT angio chest PE protocol Stat Chest CTA 08/03/23 13:32 CT ANGIOGRAPHY OF THE CHEST, PULMONARY EMBOLUS PROTOCOL CLINICAL HISTORY: Shortness of breath. COMPARISON STUDY: Chest CT May 22, 2022. TECHNIQUE: Following IV administration of 117 mL of Optiray, helical axial images of the chest were obtained utilizing the pulmonary embolus protocol. Maximal intensity projections and sagittal and coronal reformats were viewed on an independent 3D workstation. IV contrast was administered without complication. Automated exposure control was utilized for the study. A dose lowering technique was utilized adhering to the principles of ALARA. CT DOSE: 845.32 mGy.cm FINDINGS: There are postoperative findings consistent with right lower lobectomy. No enlarged axillary, mediastinal or hilar lymph nodes are present. There are no pulmonary emboli. Mild cardiomegaly is noted. There is no pericardial effusion. A trace right pleural effusion is present. There is no pneumothorax. Extensive airspace opacity within the posterior segment of the right upper lobe and the right middle lobe is present. There is no cavitation. Lungs are suboptimally assessed due to respiratory motion. No central obs tructing mass is present. There is hepatic steatosis. Gallbladder is surgically absent. IMPRESSION: 1. No pulmonary emboli identified. 2. Extensive airspace opacity within the right upper and right middle lobes status post right lower lobectomy. The findings favor pneumonia or aspiration pneumonitis. A follow-up chest CT in 2 months to ensure resolution is recommended. 3. Cardiomegaly. 4. Hepatic steatosis. ACT 112: Negative or not required by law. Electronically signed by: Martin Miller M.D. 08/03/2023 4:12 PM Discharge Instructions Given to Patient (Per Discharging Provider) Doris, You were admitted with trouble breathing and you were found to have the flu and pneumonia. We treated you with IV antibiotics and steroids and your symptoms improved. We are discharging you home with 10 more days of the oral antibiotics cefdinir and doxycycline. Please take them as prescribed. Please also take the prescribed prednisone 40mg daily for 3 more days. You will need to repeat the CT of your chest in 8 weeks. Please keep close follow up with your primary care provider and imaging administrator after discharge. Should your symptoms worsen or return, please do not hesitate to return to the emergency room. It was a pleasure taking care of you while you were here. Happy New Year! Total Time Total Time Spent Total Time Spent (In Minutes): > 30 minutes
[2023-08-07] MEDS ORDERED: methylPREDNISolone 40 MG in SYRINGE 0 ML IV SCH (09:00)
== END 2023-08-06 18:40 | disposition home or self-care (01) | DRG 193 ==
LOC: ED 13:05 → SUATTDRO 17:42 → EDINP 17:42 → 2W 18:47